=== PATIENT | female | born 1965 | race Caucasian/White ===

== ENCOUNTER 2016-08-10 16:03 | Emergency (ER) | payer SELFPAY ==
[2016-08-10 16:52] VITALS: BP 118/64
--- NOTE | 2016-08-10 16:57 | UC ---
Minor Trauma HPI - HPI Summary HPI Summary: Patient complaining of rib pain after falling off ladder and landing on L side. she states the pain wraps around to her back and is 10/10. Denies LOC or hitting her head. States she slipped an fell and did not pass out prior to falling. She is also complaining of knee pain. the pain is located in the back of the knee., she is able to move the knee with full ROM, she is c/o varicose vein which was smaller previous to the injury has now grown in size and is painful. - History of Current Complaint Chief Complaint: UCTrauma Stated Complaint: RIB PAIN Hx Obtained From: Patient Hx Last Menstrual Period: n/a ?: No Onset/Duration: Sudden Onset Onset Of Pain: Post Accident Severity Initially: Moderate Severity Currently: Moderate Pain Intensity: 5 Pain Scale Used: 0-10 Numeric Mechanism Of Injury: Blunt Trauma, Fall From Height Of: - 4 feet Aggravating Factor(s): Ambulation, Movement, Weight Bearing Alleviating Factor(s): Nothing Associated Signs And Symptoms: Positive: Swelling - varicose vein swelling - Risk Factors Penetrating Injury Risk Factors: Negative Compartment Syndrome Risk Factors: Pain - Allergies/Home Medications Allergies/Adverse Reactions: Allergies Allergy/AdvReac Type Severity Reaction Status Date / Time Codeine Allergy Hives Verified 04/06/16 11:21 Penicillins Allergy Difficulty Verified 04/06/16 11:21 Breathing Propoxyphene [From Darvon] Allergy Anaphylatic Verified 04/06/16 11:21 Shock aspirin Allergy Difficulty Uncoded 04/06/16 11:21 Breathing Home Medications: Home Medications Ascorbic Acid [Vitamin C] 1,000 mg PO DAILY 08/10/16 [History Confirmed 08/10/16 ] Docusate Sodium [Stool Softener] 200 mg PO BID 08/10/16 [History Confirmed 08/10] Omeprazole 20 mg PO DAILY 08/10/16 [History Confirmed 08/10/16] Venlafaxine ER (NF) [Effexor ER (NF)] 150 mg PO DAILY 08/10/16 [History Confirmed 08/10/16] PMH/Surg Hx/FS Hx/Imm Hx Previously Healthy: Yes Endocrine History Of: Reports: Thyroid Disease - hypo Denies: Diabetes Cardiovascular History Of: 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 Denies: Hypertension, Pacemaker/ICD GI/ History Of: Denies: Renal Disease - Surgical History Surgical History: Yes Surgery Procedure, Year, and Place: cholecystectomy; b/L knee repairs, cardiac ablation - Family History Known Family History: Positive: Cardiac Disease - Social History Occupation: Unemployed Lives: With Family Alcohol Use: None Substance Use Type: None Smoking Status (MU): Heavy Every Day Tobacco Smoker Amount Used/How Often: 1/2ppd Length of Time of Smoking/Using Tobacco: age 38 Have You Smoked in the Last Year: No Household Exposure Type: Cigarettes - Immunization History Most Recent Tetanus Shot: less than 10 yrs ago Review of Systems Constitutional: Negative Skin: Negative Eyes: Negative Respiratory: Negative Cardiovascular: Negative Genitourinary: Negative Motor: Negative Neurovascular: Negative Musculoskeletal: Other: - rib pain on L side Neurological: Negative All Other Systems Reviewed And Are Negative: Yes Physical Exam Triage Information Reviewed: Yes Appearance: Well-Appearing, Well-Nourished, Pain Distress Vital Signs: Initial Vital Signs Temp 97.6 F 08/10/16 16:43 Pulse 68 08/10/16 16:43 Resp 18 08/10/16 16:43 BP 118/64 08/10/16 16:43 Pulse Ox 100 08/10/16 16:43 Vital Signs Reviewed: Yes Eye Exam: Normal Eyes: Positive: Conjunctiva Clear ENT Exam: Normal ENT: Positive: Hearing grossly normal Neck exam: Normal Neck: Positive: Supple, Nontender Respiratory Exam: Normal Respiratory: Positive: Chest non-tender, Lungs clear Cardiovascular Exam: Normal Musculoskeletal Exam: Normal Musculoskeletal: Positive: Strength Intact, ROM Limited @ - twisting movement Neurological Exam: Normal Neurological: Positive: Alert Psychological Exam: Normal Psychological: Positive: Normal Response To Family, Age Appropriate Behavior Skin Exam: Normal Minor Trauma Course/Dx - Course Course Of Treatment: Patient sent to Xray. Tramadol given (allergy to codeine and cross reactivity with other pain meds) - Differential Dx/Diagnosis Differential Diagnosis/HQI/PQRI: Contusion(s), Hematoma(s), Sprain Provider Diagnoses: rib contusion Discharge - Discharge Plan Condition: Stable Disposition: HOME Prescriptions: traMADol TAB* [Ultram*] 50 mg PO Q6HR #12 tab MDD 4 Patient Education Materials: Rib Contusion (ED) Forms: *Work Release Referrals: Piero Licona PA [Primary Care Provider] - Additional Instructions: Rest for a few days. wear bear wrap on knee for 3-5 days for swelling.
[2016-08-10] MEDS ORDERED: traMADol TAB* 50 MG PO ONE (17:22)
--- NOTE | 2016-08-10 17:56 | RAD ---
Indication: LEFT thoracic cage pain post fall from ladder. Comparison: None. Technique: 4 view LEFT rib series obtained. Report: Inferolateral skin marker noted indicating the site of clinical concern. No LEFT rib fracture, pulmonary contusion, pleural effusion, pneumothorax. The heart, pulmonary vasculature, and mediastinal contours are unremarkable. Unremarkable soft tissue contours. IMPRESSION: Negative for LEFT rib fracture.
[2016-08-10] MEDS ORDERED: traMADol TAB* 50 MG ONE (21:49)
== END 2016-08-10 18:31 | disposition home or self-care (01) ==
LOC: UCCORT 16:03
DX: S20.212A Contusion of left front wall of thorax, initial encounter (principal); W11.XXXA Fall on and from ladder, initial encounter; Y92.9 Unspecified place or not applicable; Z88.6 Allergy status to analgesic agent; Z88.5 Allergy status to narcotic agent; Z88.0 Allergy status to penicillin; I45.6 Pre-excitation syndrome; F17.210 Nicotine dependence, cigarettes, uncomplicated
CPT/HCPCS: 99212; A9270-GY; G0463

== ENCOUNTER 2018-12-25 09:19 | Emergency (ER) | payer SELFPAY ==
[2018-12-25 10:03] VITALS: BP 115/56
[2018-12-25] MEDS ORDERED: Ibuprofen TAB* 600 MG PO ONE (10:42)
--- NOTE | 2018-12-25 10:49 | UC ---
UC General HPI - HPI Summary HPI Summary: 53-year-old woman comes in with a chief complaint of left hand wrist and knee pain after a fall. Patient was at work this morning she tripped and fell and landed on her left hand and left knee primarily. She has pain in both these areas. The wrist and hand pain or worse with palpation and range of motion as is the left knee. No weakness or numbness. There is bruising and swelling anterior left knee. Pain with any attempted ambulation. Has not had any pain medicines. - History of Current Complaint Chief Complaint: UCTrauma Stated Complaint: SP FALL-LT KNEE INJURY/HAND INJURY Time Seen by Provider: 12/25/18 10:39 Hx Last Menstrual Period: n/a Pain Intensity: 10 - Allergy/Home Medications Allergies/Adverse Reactions: Allergies Allergy/AdvReac Type Severity Reaction Status Date / Time codeine Allergy Hives Verified 12/25/18 10:15 Penicillins Allergy Difficulty Verified 12/25/18 10:15 Breathing propoxyphene Allergy Anaphylatic Verified 12/25/18 10:15 Shock aspirin Allergy Difficulty Uncoded 12/25/18 10:15 Breathing Home Medications: Home Medications Ibuprofen 800 mg PO Q8HR PRN 12/25/18 [History Confirmed 12/25/18] QUEtiapine TAB* [Seroquel 100 MG *] 100 mg PO BEDTIME 12/25/18 [History Confirmed 12/25/18] Venlafaxine HCl 225 mg PO DAILY 12/25/18 [History Confirmed 12/25/18] PMH/Surg Hx/FS Hx/Imm Hx Previously Healthy: Yes Endocrine History: Hypothyroidism GI/ History: Gastroesophageal Reflux - Surgical History Surgical History: Yes Surgery Procedure, Year, and Place: cholecystectomy; b/L knee repairs, cardiac ablation - Family History Known Family History: Positive: Cardiac Disease - Social History Alcohol Use: None Substance Use Type: None Smoking Status (MU): Heavy Every Day Tobacco Smoker Amount Used/How Often: 1/2ppd Length of Time of Smoking/Using Tobacco: age 38 Have You Smoked in the Last Year: No Household Exposure Type: Cigarettes - Immunization History Most Recent Tetanus Shot: less than 10 yrs ago Review of Systems All Other Systems Reviewed And Are Negative: Yes Constitutional: Positive: Negative Skin: Positive: Bruising Eyes: Positive: Negative ENT: Positive: Negative Respiratory: Positive: Negative Cardiovascular: Positive: Negative Gastrointestinal: Positive: Negative Motor: Positive: Other - SEE HPI Neurovascular: Positive: Negative Musculoskeletal: Positive: Other: - SEE HPI Neurological: Positive: Negative Psychological: Positive: Negative Is Patient Immunocompromised?: No Physical Exam Triage Information Reviewed: Yes Appearance: Well-Appearing, Well-Nourished, Pain Distress - MILD WITH ROM Vital Signs: Initial Vital Signs Temp 97.9 F 12/25/18 09:56 Pulse 78 12/25/18 09:56 Resp 16 12/25/18 09:56 BP 115/56 12/25/18 09:56 Pulse Ox 97 12/25/18 09:56 Vital Signs Reviewed: Yes Eye Exam: Normal Eyes: Positive: Conjunctiva Clear Neck: Positive: Supple Respiratory: Positive: No respiratory distress Musculoskeletal: Positive: Other: - The left hand is tender to palpation the left hand and wrist are tender to palpation on the dorsal aspect. On the hand the discomfort is in the proximal region closer to the wrist. There is full range of motion fingers have full range of motion full-strength no sensation deficit normal capillary refill. Left knee has anterior swelling and ecchymosis. It is diffusely tender to palpation. Normal capillary refill distally no sensation deficit. Neurological: Positive: Alert, Muscle Tone Normal Psychological Exam: Normal Psychological: Positive: Age Appropriate Behavior Skin: Positive: Other - LEFT ANTERIOR KNEE ECCYMOSIS Course/Dx - Course Course Of Treatment: Patient Name: JAY MOSES Medical Record#: [id number] Ordering Physician: Oz Eagle MD Acct.#: [id number] : 1965 Age: 53 Sex: F Location: [facility] Exam Date: 12/25/18 1043 ADM Status: REG ER Order Information: WRIST LEFT 3+ VWS Accession Number: [id number] CPT: 45685 INDICATION: LEFT hand metacarpal region pain extending into the wrist post fall. COMPARISON: No relevant prior exams available on the [facility] PACS for comparison. TECHNIQUE: AP, lateral, and oblique views LEFT hand. AP, lateral, and oblique views LEFT wrist REPORT AND IMPRESSION: #. Negative for fracture or malalignment at the wrist or hand. 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 Mild soft tissue swelling over the dorsum of the wrist and hand. <Electronically signed by Kapil Crain MD in OV> 12/25/18 1118 Patient Name: JAY MOSES Medical Record#: [id number] Ordering Physician: Oz Eagle MD Acct.#: [id number] : 1965 Age: 53 Sex: F Location: [facility] Exam Date: 12/25/18 1043 ADM Status: REG ER Order Information: KNEE LEFT 4+ VWS Accession Number: [id number] CPT: 41785 INDICATION: Left knee injury. TECHNIQUE: 4 views of the left knee were obtained. FINDINGS: The bones are in normal alignment. No joint effusion or fracture is seen. Joint spaces appear maintained. IMPRESSION: NO EVIDENCE FOR FRACTURE. <Electronically signed by Varinder Mark MD in OV> 12/25/18 1116 Patient Name: JAY MOSES Medical Record#: [id number] Ordering Physician: Oz Eagle MD Acct.#: [id number] : 1965 Age: 53 Sex: F Location: [facility] Exam Date: 12/25/18 1043 ADM Status: REG ER Order Information: HAND - LEFT MINIMUM 3 VIEWS Accession Number: [id number] CPT: 23357 INDICATION: LEFT hand metacarpal region pain extending into the wrist post fall. COMPARISON: No relevant prior exams available on the [facility] PACS for comparison. TECHNIQUE: AP, lateral, and oblique views LEFT hand. AP, lateral, and oblique views LEFT wrist REPORT AND IMPRESSION: #. Negative for fracture or malalignment at the wrist or hand. 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 Mild soft tissue swelling over the dorsum of the wrist and hand. <Electronically signed by Kapil Crain MD in OV> 12/25/18 1118 I discussed the x-rays with the patient. No fracture seen. Patient's left wrist was placed in a cock up splint left knee an Ruy wrap was applied both by nursing patient was neurovascularly intact after placement of the left wrist cock-up splint and the left knee Ruy wrap. Also patient's at home with a cane. Patient's had some orthopedic issues of the right hand is to see orthopedics tomorrow patient is to follow-up with orthopedics for these injuries also. I'm writing a note to have the patient out of work until cleared by medical provider. - Diagnoses Provider Diagnosis: Sprain of left wrist, Sprain of left hand, Left knee pain, Contusion Discharge - Sign-Out/Discharge Documenting (check all that apply): Patient Departure All imaging exams completed and their final reports reviewed: Yes - Discharge Plan Condition: Stable Disposition: HOME Patient Education Materials: Contusion in Adults (ED), Hand Sprain (ED), Knee Pain (ED), Wrist Sprain (ED) Forms: *Work Release Referrals: Piero Licona PA [Primary Care Provider] - Kenton Ocasio MD [Medical Doctor] - Additional Instructions: FOLLOW UP WITH ORTHOPEDICS TOMORROW SCHEDULED. GET RECHECKED SOONER IF YOUR CONDITION WORSENS OR ANY QUESTIONS OR CONCERNS. - Billing Disposition and Condition Condition: STABLE Disposition: Home
== END 2018-12-25 12:01 | disposition home or self-care (01) ==
LOC: UCCORT 09:19
DX: S63.92XA Sprain of unspecified part of left wrist and hand, initial encounter (principal); S80.02XA Contusion of left knee, initial encounter; F17.210 Nicotine dependence, cigarettes, uncomplicated; Z88.5 Allergy status to narcotic agent; Z88.0 Allergy status to penicillin; Z88.8 Allergy status to other drugs, medicaments and biological substances; W01.0XXA Fall on same level from slipping, tripping and stumbling without subsequent striking against object, initial encounter; Y92.9 Unspecified place or not applicable; Y99.0 Civilian activity done for income or pay
CPT/HCPCS: 99213; A9270-GY; G0463

== ENCOUNTER 2019-02-27 14:07 | Emergency (ER) | payer BC, OTHER ==
--- OUTSIDE RECORDS SUMMARY | 2019-02-27 14:17 | XMS REPORT | Continuity of Care Document ---
:1965 External Reference #:[id number] Author Name Marcie Alvarado, [facility] Address [address] [place] [address] Care Team Providers Name Role Phone Rashmi Licona PA Care Team Information Research Recruiter Unavailable Rashmi Licona PA Primary Care Physician Unavailable Payers Date Identification Numbers Payment Provider Subscriber Effective: 2019 Policy Number: [id number] [employer] Joey Ragland Toussaint PayID: [id number] [address] [address] [place] [address] Onset: 2018 Policy Number: [id number] [facility] Insurance Fund Joey Toussaint Group Name: [address] [address] PayID: [id number] [place] [address] Expires: 2019 Policy Number: [id number] Self-Pay Joey Toussaint PayID: [id number] Problems Active Problems Provider Date Mallet finger Carlene Shannon PA Onset: 04/25/2018 Fracture distal phalanx of thumb Carlene Shannon PA Onset: 04/25/2018 Family History Date Family Member(s) Observation Comments Father 80 Mother 72 Social History Type Date Description Comments Sex Unknown Marital Status Single Lives With Alone Diet Patient follows no dietary restrictions 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 [employer] Hand Dominance Right-handed Abuse No history of abuse Tobacco Use Start: Unknown Patient is a current cigarette 20 YEARS smoker, smokes every day Tobacco Use Start: Unknown Current Cigarette Smoker 5-10 Cigarettes Daily Smoking Status Reviewed: 01/29/19 Current Cigarette Smoker 5-10 Cigarettes Daily ETOH Use Rarely consumes alcohol Recreational Drug Use Denies Drug Use Tobacco Use Start: Unknown Patient is a current smoker, smokes every day Enjoy Exercising Does not enjoy exercising Tattoo/Piercing Tattoo Tattoo/Piercing Pierced ears Tattoo/Piercing Pierced Tongue Smoke Alarms Yes Currently Active Patient is currently sexually active Contraceptive Methods None Age 1st [place] 13 Years Old # Partners in a Lifetime 3 # Partners in a Lifetime Has been with current partner for 1 year STD's No STD History Allergies, Adverse Reactions, Alerts Active Allergies Reaction Severity Comments Date Latex 04/25/2018 Penicillin 04/25/2018 Aspirin 04/25/2018 Medications Active Medications SIG Qnty Indications Ordering Provider Date Diclofenac Sodium 1 tab twice a day 60tabs Flower Chandra, 11/29/2018 with food 50mg Tablets Albuterol Inhaler 2 puffs prn 1units Unknown 90mcg/Act Aerosol Synthroid 1 po qd Unknown 75mcg Tablets Quetiapine Fumarate 1 by mouth every [place], day MD Jeancarlos 50mg Tablets Proair HFA take 2 puffs every 17gm Unknown 6 hours as needed 108(90Base) mcg/Act for shortness of Aerosol breath. Omeprazole 1 by mouth every Unknown 20mg day Capsules DR Nicky Cheatham inhale 1 dose by Unknown mouth once daily 100-25mcg/Inh Aerosol Venlafaxine HCL 1 by mouth every Unknown 75mg day Tablets History Medications Tylophen 500mg Capsules prn Unknown - Medications Administered in Office Medication SIG Qnty Indications Ordering Provider Date Betamethasone Acetate & Marcie Alvarado, [facility] 02/10/2019 Sodium Phosphate 3 MG Of Each Injection Betamethasone Acetate & Marcie Alvarado, [facility] 02/10/2019 Sodium Phosphate 3 MG Of Each Injection Depomedrol 40mg/1cc Flower Chandra MD 01/15/2019 (methylprednisolone acetate) Injection Betamethasone Acetate & Marcie Alvarado, [facility] 12/26/2018 Sodium Phosphate 3 MG Of Each Injection Vital Signs Date Vital Result Comment 02/10/2019 3:01pm BP Systolic 134 mmHg BP Diastolic 59 mmHg Body Temperature 98.0 F Heart Rate 88 /min Height 67 inches 5'7" Weight 227.00 lb BMI (Body Mass Index) 35.5 kg/m2 BSA (Body Surface Area) 2.13 m2 [place] body weight in kilograms 61 kg O2 % BldC Oximetry 94 % 01/29/2019 9:51am BP Systolic Sitting Right Arm 114 mmHg BP Diastolic Sitting Right Arm 73 mmHg Body Temperature 98.8 F Heart Rate 93 /min [place] body weight in kilograms 66 kg O2 % BldC Oximetry 94 % 01/15/2019 2:34pm BP Systolic 132 mmHg BP Diastolic 78 mmHg Body Temperature 98.7 F Heart Rate 84 /min Height 69 inches 5'9" [place] body weight in kilograms 66 kg O2 % BldC Oximetry 93 % 12/31/2018 2:11pm BP Systolic Sitting Left Arm 120 mmHg Body Temperature 98.5 F Heart Rate 88 /min Height 69 inches 5'9" Weight 200.00 lb BMI (Body Mass Index) 29.5 kg/m2 BSA (Body Surface Area) 2.07 m2 [place] body weight in kilograms 66 kg O2 % BldC Oximetry 96 % 12/26/2018 10:32am BP Systolic Sitting Left Arm 112 mmHg BP Diastolic Sitting Left Arm 74 mmHg Body Temperature 99.4 F Heart Rate 106 /min Height 69 inches 5'9" [place] body weight in kilograms 66 kg O2 % BldC Oximetry 94 % 11/29/2018 10:32am BP Systolic 115 mmHg BP Diastolic 75 mmHg Body Temperature 99.3 F Heart Rate 91 /min Height 68 inches 5'8" Weight 223.00 lb BMI (Body Mass Index) 33.9 kg/m2 BSA (Body Surface Area) 2.14 m2 [place] body weight in kilograms 63 kg O2 % BldC Oximetry 97 % 07/04/2018 10:59am BP Systolic Sitting Right Arm 126 mmHg BP Diastolic Sitting Right Arm 80 mmHg Body Temperature 98.5 F Heart Rate 91 /min Height 69 inches 5'9" Weight 225.25 lb BMI (Body Mass Index) 33.3 kg/m2 BSA (Body Surface Area) 2.17 m2 [place] body weight in kilograms 66 kg O2 % BldC Oximetry 98 % Pain Level 6 Rt Pinky 06/04/2018 3:13pm BP Systolic 127 mmHg BP Diastolic 81 mmHg Body Temperature 98.8 F Heart Rate 87 /min Respiratory Rate 16 /min Height 69 inches 5'9" Weight 225.12 lb BMI (Body Mass Index) 33.2 kg/m2 BSA (Body Surface Area) 2.17 m2 [place] body weight in kilograms 66 kg O2 % BldC Oximetry 96 % Ra Pain Level 0 05/21/2018 2:54pm BP Systolic Sitting Right Arm 104 mmHg BP Diastolic Sitting Right Arm 52 mmHg Heart Rate 96 /min Respiratory Rate 16 /min Height 69 inches 5'9" Weight 224.00 lb BMI (Body Mass Index) 33.1 kg/m2 BSA (Body Surface Area) 2.17 m2 [place] body weight in kilograms 66 kg O2 % BldC Oximetry 96 % 05/14/2018 2:49pm BP Systolic 110 mmHg BP Diastolic 70 mmHg Body Temperature 98.1 F Heart Rate 95 /min Height 69 inches 5'9" Weight 218.00 lb BMI (Body Mass Index) 32.2 kg/m2 BSA (Body Surface Area) 2.14 m2 [place] body weight in kilograms 66 kg O2 % BldC Oximetry 98 % Pain Level 8 04/25/2018 10:09am BP Systolic Sitting Right Arm 113 mmHg BP Diastolic Sitting Right Arm 72 mmHg Body Temperature 98.4 F Heart Rate 85 /min Respiratory Rate 18 /min Weight 217.12 lb O2 % BldC Oximetry 96 % 11/28/2010 1:16pm Heart Rate 74 /min Results Test Date Facility Test Result H/L Range Note Laboratory test 11/29/2018 [facility] Sedimentation Rate 29 mm/hr Normal 2-45 1 finding [address] [place] [address] [phone] Uric Acid 3.5 mg/dL Normal 2.6-6.0 Calcium 8.3 mg/dL Low 8.5-10.1 Total Protein 7.4 g/dL Normal 6.4-8.2 Albumin 3.6 g/dL Normal 3.4-5.0 Alb/Glob 0.9 ratio Alkaline Phosphatase 84 U/L Normal 45-117 Rheumatoid Factor Screen < 10.0 IU/mL Normal 0.0-15.0 Globulin 3.8 g/dL Normal 1.9-4.3 Antinuclear Antibodies, Ifa Negative . 2 Laboratory test finding 12/05/2010 [facility] HCG, Quant 3.0 mIU/mL 3 [address] [place] [address] [phone] Laboratory test finding 11/28/2010 [facility] HCG, Quant 3.0 mIU/mL 4 [address] [place] [address] [phone] FSH 85.9 mIU/mL 5 Luteinizing Hormone 69.0 mIU/mL 6 Prolactin 15.3 ng/mL 3.24-29.12 7 Thyroid Stim Hormone 3.50 uIU/mL 0.49-4.67 8 Free T4 1.01 ng/dL 0.71-1.85 9 1 This result was obtained with an ESR method that is not based on the standard Westergren Method. When comparing results obtained from the traditional Westergren ESR and this method it is important to refer to the reference range for each method. Method: Capillary Photometry 2 Negative <1:80 Borderline 1:80 Positive >1:80 Performed at: - [facility] [id number] Case Reviewer: Nini Lord MD, Phone: [phone] APPROXIMATE GESTATIONAL AGE AND BHCG RANGE 0-1 WEEK.......................1-50 mIU/mL 1-2 WEEKS....................40-300 mIU/mL 2-3 WEEKS.................100-1,000 mIU/mL 3-4 WEEKS.................500-6,000 mIU/mL 1-2 MONTHS............5,000-200,000 mIU/mL 2-3 MONTHS...........10,000-100,000 mIU/mL 2nd TRIMESTER..........3,000-50,000 mIU/mL 3rd TRIMESTER..........1,000-50,000 mIU/mL 4 APPROXIMATE GESTATIONAL AGE AND BHCG RANGE 0-1 WEEK.......................1-50 mIU/mL 1-2 WEEKS....................40-300 mIU/mL 2-3 WEEKS.................100-1,000 mIU/mL 3-4 WEEKS.................500-6,000 mIU/mL 1-2 MONTHS............5,000-200,000 mIU/mL 2-3 MONTHS...........10,000-100,000 mIU/mL 2nd TRIMESTER..........3,000-50,000 mIU/mL 3rd TRIMESTER..........1,000-50,000 mIU/mL 5 NORMALLY MENSTRUATING FEMALES: Follicular Phase:...............4-13 mIU/mL Mid-Cycle Peak:.................5-22 mIU/mL Luteal Phase:...................2-13 mIU/mL Postmenopausal Female:........20-138 mIU/mL 6 NORMALLY MENSTRUATING FEMALES: Follicular Phase.............1-18 mIU/mL Mid-Cycle Peak.............24-105 mIU/mL Luteal Phase...............0.4-20 mIU/mL Postmenopausal .............15-62 mIU/mL 7 TEST PERFORMED ON SUNDAY, SUNDAY, AND SUNDAY QUERY: @[facility] Pat ID: [id number] QUERY: @[facility] Req #: [id number] QUERY: @[facility] Pat ID: [id number] QUERY: @[facility] Req #: [id number] QUERY: @[facility] Pat ID: [id number] QUERY: @[facility] Req #: [id number] Procedures Date Code Description Status 02/10/2019 Asp/Injection small joint/bursa (ie-fingers,toes) Completed 02/10/2019 Asp/Injection small joint/bursa (ie-fingers,toes) Completed 01/29/2019 11794 Application of Cast short arm Completed 01/15/2019 87534 Radiology, Wrist Complete Completed 01/15/2019 10904 Asp./Injection major joint Completed 12/24/2018 09927 Nerve Conduction 7-8 Studies Completed 12/24/2018 69870 Needle Electromyography Complete, Five Or More Muscles Completed Studied 11/29/2018 29243 Radiology, Hand: Minimum Three Views Completed 07/04/2018 03602 Radiology, Finger(S), Two Views Completed 07/04/2018 11137 Apply Splint Finger Static Completed 06/04/2018 65772 Radiology, Finger(S), Two Views Completed 06/04/2018 80830 Radiology, Finger(S), Two Views Completed 05/21/2018 17662 Apply Splint Finger Static Completed 05/14/2018 10069 Radiology, Finger(S), Two Views Completed 05/14/2018 29738 Apply Splint Finger Static Completed 04/25/2018 00445 Fracture-closed finger or thumb Completed 01/08/2017 66171 EKG Interpretation And Report Only Completed 08/02/2012 72436 Holter Monitor 24HR Inter/Report Completed 06/07/2012 85036 Echocardiogram Complete Completed 08/06/2008 86620315 Mammogram Completed 11/05/2007 64065 EKG Interpretation And Report Only Completed Encounters Type Date Location Provider Dx Diagnosis Office Visit 01/29/2019 Orthopaedic Office Flower Chandra, M24.232 Disorder of 10:15a ligament, left wrist M67.432 Ganglion, left wrist M65.4 Radial styloid tenosynovitis [de Quervain] 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, left wrist Office Visit 01/15/2019 Blake Chandra 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, left knee M17.12 Unilateral primary osteoarthritis, left knee M65.4 Radial styloid tenosynovitis [de Quervain] Office Visit 12/31/2018 Blake Chandra, S63.502D Unspecified 2:15p Office MD Flower sprain of left wrist, subsequent encounter S63.502D Unspecified sprain of left wrist, subsequent encounter S83.232D Complex tear of medial mensc, current injury, l knee, subs S83.232D Complex tear of medial mensc, current injury, l knee, subs W18.49xA Oth slipping, tripping and stumbling w/o falling, init W18.49xA Oth slipping, tripping and stumbling w/o falling, init Y99.0 Civilian activity done for income or pay Y99.0 Civilian activity done for income or pay Office Visit 11/29/2018 10:15a Orthopaedic Office Marcie Alvarado M79.641 Pain in S., [facility] right hand M25.531 Pain in right wrist M79.642 Pain in left hand R20.0 Anesthesia of skin Office Visit 04/25/2018 10:15a Orthopaedic Office Carlene Shannon, S62.636A Disp fx of PA distal phalanx of right little finger, init M20.011 Mallet finger of right finger(s) Office Visit 12/05/2010 10:00a survey researcher Office Shadi Soto, 626.0 Menstruation Absence M.D. Office Visit 11/28/2010 9:00a survey researcher Office Shadi Soto, 626.0 Menstruation Absence M.D. 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
--- OUTSIDE RECORDS SUMMARY | 2019-02-27 14:17 | XMS REPORT | Continuity of Care Document ---
:1965 External Reference #:[id number] Author Name Flower Chandar MD Address [address] [place] [address] Care Team Providers Name Role Phone Rashmi Licona PA Care Team Information Dynamometer Tester Unavailable Rashmi Licona PA Primary Care Physician Unavailable Payers Date Identification Numbers Payment Provider Subscriber Onset: 2018 Policy Number: [id number] [facility] Insurance Fund Joey Toussaint Group Name: [address] [address] PayID: [id number] [place] [address] Effective: 2019 Policy Number: [id number] [employer] Joey Toussaint PayID: [id number] [address] [address] [place] [address] Expires: 2019 Policy Number: [id number] Self-Pay Joey Toussaint PayID: [id number] Problems Active Problems Provider Date Mallet finger Carlene Shannon PA Onset: 04/25/2018 Fracture distal phalanx of thumb Carlene Shannon PA Onset: 04/25/2018 Family History Date Family Member(s) Observation Comments Father 80 Mother 72 Social History Type Date Description Comments Sex Unknown Marital Status Single Lives With Alone Diet Patient follows no dietary restrictions 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 Hand 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 Right-handed Abuse No history of abuse Tobacco Use Start: Unknown Patient is a current cigarette 20 YEARS smoker, smokes every day Tobacco Use Start: Unknown Current Cigarette Smoker 5-10 Cigarettes Daily Smoking Status Reviewed: 02/13/19 Current Cigarette Smoker 5-10 Cigarettes Daily ETOH Use Rarely consumes alcohol Recreational Drug Use Denies Drug Use Tobacco Use Start: Unknown Patient is a current smoker, smokes every day Enjoy Exercising Does not enjoy exercising Tattoo/Piercing Tattoo Tattoo/Piercing Pierced ears Tattoo/Piercing Pierced Tongue Smoke Alarms Yes Currently Active Patient is currently sexually active Contraceptive Methods None Age 1st [place] 13 Years Old # Partners in a [...] Tablets Quetiapine Fumarate 1 by mouth every [place], day MD Jeancarlos 50mg Tablets Proair HFA [...] Ordering Provider Date Betamethasone Acetate & Marcie Alvarado [facility] 02/10/2019 Sodium Phosphate 3 MG Of Each Injection Depomedrol 40mg/1cc Flower Chandra MD 01/15/2019 (methylprednisolone acetate) [facility] 12/26[facility]2018 Sodium Phosphate 3 MG Of Each Injection Vital Signs Date Vital Result Comment 02/25/2019 3:35pm BP Systolic 121 mmHg BP Diastolic 74 mmHg Body Temperature 97.8 F Heart Rate 86 /min Height 67.5 inches 5'7.50" Weight 220.00 lb BMI (Body Mass Index) 33.9 kg/m2 BSA (Body Surface Area) 2.12 m2 [place] body weight in kilograms 62 kg O2 % BldC Oximetry 93 % 02/10/2019 3:01pm BP Systolic 134 mmHg BP Diastolic 59 mmHg Body Temperature 98.0 F Heart Rate 88 /min Height 67 inches 5'7" Weight 227.00 lb BMI (Body Mass Index) 35.5 kg/m2 BSA (Body Surface Area) 2.13 m2 [place] body weight in kilograms 61 kg O2 % BldC Oximetry 94 % 01/29/2019 9:51am BP Systolic Sitting Right Arm 114 mmHg BP Diastolic Sitting Right Arm 73 mmHg Body Temperature 98.8 F Heart Rate 93 /min [place] body weight in kilograms 66 kg O2 % BldC Oximetry 94 % 01/15/2019 2:34pm BP Systolic 132 mmHg BP Diastolic 78 mmHg Body Temperature 98.7 F Heart Rate 84 /min Height 69 inches 5'9" [place] body weight in kilograms 66 kg O2 % BldC Oximetry 93 % 12/31/2018 2:11pm BP Systolic Sitting Left Arm 120 mmHg Body Temperature 98.5 F Heart Rate 88 /min Height 69 inches 5'9" Weight 200.00 lb BMI (Body Mass Index) 29.5 kg/m2 BSA (Body Surface Area) 2.07 m2 [place] body weight in kilograms 66 kg O2 % BldC Oximetry 96 % 12/26/2018 10:32am BP Systolic Sitting Left Arm 112 mmHg BP Diastolic Sitting Left Arm 74 mmHg Body Temperature 99.4 F Heart Rate 106 /min Height 69 inches 5'9" [place] body weight in kilograms 66 kg O2 % BldC Oximetry 94 % 11/29/2018 10:32am BP Systolic 115 mmHg BP Diastolic 75 mmHg Body Temperature 99.3 F Heart Rate 91 /min Height 68 inches 5'8" Weight 223.00 lb BMI (Body Mass Index) 33.9 kg/m2 BSA (Body Surface Area) 2.14 m2 [place] body weight in kilograms 63 kg O2 % BldC Oximetry 97 % 07/04/2018 10:59am BP Systolic Sitting Right Arm 126 mmHg BP Diastolic Sitting Right Arm 80 mmHg Body Temperature 98.5 F Heart Rate 91 /min Height 69 inches 5'9" Weight 225.25 lb BMI (Body Mass Index) 33.3 kg/m2 BSA (Body Surface Area) 2.17 m2 [place] body weight in kilograms 66 kg O2 % BldC Oximetry 98 % Pain Level 6 Rt Pinky 06/04/2018 3:13pm BP Systolic 127 mmHg BP Diastolic 81 mmHg Body Temperature 98.8 F Heart Rate 87 /min Respiratory Rate 16 /min Height 69 inches 5'9" Weight 225.12 lb BMI (Body Mass Index) 33.2 kg/m2 BSA (Body Surface Area) 2.17 m2 [place] body weight in kilograms 66 kg O2 % BldC Oximetry 96 % Ra Pain Level 0 05/21/2018 2:54pm BP Systolic Sitting Right Arm 104 mmHg BP Diastolic Sitting Right Arm 52 mmHg Heart Rate 96 /min Respiratory Rate 16 /min Height 69 inches 5'9" Weight 224.00 lb BMI (Body Mass Index) 33.1 kg/m2 BSA (Body Surface Area) 2.17 m2 [place] body weight in kilograms 66 kg O2 % BldC Oximetry 96 % 05/14/2018 2:49pm BP Systolic 110 mmHg BP Diastolic 70 mmHg Body Temperature 98.1 F Heart Rate 95 /min Height 69 inches 5'9" Weight 218.00 lb BMI (Body Mass Index) 32.2 kg/m2 BSA (Body Surface Area) 2.14 m2 [place] body weight in kilograms 66 kg O2 [...] Result H/L Range Note Laboratory test 11/29/2018 [facility] Sedimentation Rate 29 mm/hr Normal 2-45 1 finding [address] [place] [address] [phone] Uric Acid 3.5 mg/dL Normal 2.6-6.0 Calcium 8.3 mg/dL Low 8.5-10.1 Total Protein 7.4 g/dL Normal 6.4-8.2 Albumin 3.6 g/dL Normal 3.4-5.0 Alb/Glob 0.9 ratio Alkaline Phosphatase 84 U/L Normal 45-117 Rheumatoid Factor Screen < 10.0 IU/mL Normal 0.0-15.0 Globulin 3.8 g/dL Normal 1.9-4.3 Antinuclear Antibodies, Ifa Negative . 2 Laboratory test finding 12/05/2010 [facility] HCG, Quant 3.0 mIU/mL 3 [address] [place] [address] [phone] Laboratory test finding 11/28/2010 [facility] HCG, Quant 3.0 mIU/mL 4 [address] [place] [address] [phone] FSH 85.9 mIU/mL 5 Luteinizing Hormone 69.0 [...] Borderline 1:80 Positive >1:80 Performed at: - [facility] [id number] Supervisor Carbon Electrodes: Nini Lord MD, Phone: [phone] APPROXIMATE GESTATIONAL AGE AND BHCG RANGE [...] PERFORMED ON SUNDAY, SUNDAY, AND SUNDAY QUERY: @[facility] Pat ID: [id number] QUERY: @[facility] Req #: [id number] [phone] QUERY: @[facility] Pat ID: [id number] QUERY: @[facility] Req #: [id number] QUERY: @[facility] Pat ID: [id number] QUERY: @[facility] Req #: [id number] Procedures Date Code Description Status 02/10/2019 Injection:Tendon Sheath,Lig. Cyst Completed 02/10/2019 Injection:Tendon Sheath,Lig. Cyst Completed 01/29/2019 28564 Application of Cast short arm Completed 01/15/2019 29785 Radiology, Wrist Complete Completed 01/15/2019 65768 Asp./Injection major joint Completed 12/24/2018 52715 Nerve Conduction 7-8 Studies Completed 12/24/2018 12739 Needle Electromyography Complete, Five Or More Muscles Completed Studied 11/29/2018 76012 Radiology, Hand: Minimum Three Views Completed 07/04/2018 98503 Radiology, Finger(S), Two Views Completed 07/04/2018 21384 Apply Splint Finger Static Completed 06/04/2018 97693 Radiology, Finger(S), Two Views Completed 06/04/2018 79001 Radiology, Finger(S), Two Views Completed 05/21/2018 81718 Apply Splint Finger Static Completed 05/14/2018 39283 Radiology, Finger(S), Two Views Completed 05/14/2018 29129 Apply Splint Finger Static Completed 04/25/2018 43458 Fracture-closed finger or thumb Completed 01/08/2017 21953 EKG Interpretation And Report Only Completed 08/02/2012 52389 Holter Monitor 24HR Inter/Report Completed 06/07/2012 53478 Echocardiogram Complete Completed 08/06/2008 [id number] Mammogram Completed 11/05/2007 17492 EKG Interpretation And Report Only Completed Encounters [...] Office Marcie Alvarado M79.641 Pain in S., [facility] right hand M25.531 Pain in right wrist M79.642 Pain in left hand R20.0 Anesthesia of skin Office Visit 04/25/2018 10:15a Orthopaedic Office Carlene Shannon, S62.636A Disp fx of PA distal phalanx of right little finger, init M20.011 Mallet finger of right finger(s) Office Visit 12/05/2010 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 Office Visit 11/28/2010 9:00a assault amphibious vehicle officer Office Shadi Soto, 626.0 Menstruation Absence M.D. Plan of Treatment Future Appointment(s):05/28/2019 3:15 pm - Flower Chandra MD at Orthopaedic Qdfmgf3804/03/2019 1:00 pm - Jessica Villela MD at Physical Medicine & Infectious Gelluvq4902/25/2019 - Flower Chandra, MDM17.12 Unilateral primary osteoarthritis, left knee
--- OUTSIDE RECORDS SUMMARY | 2019-02-27 14:17 | XMS REPORT | Continuity of Care Document ---
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 Rashmi Licona PA Primary Care Physician Unavailable Payers Date Identification Numbers Payment Provider Subscriber Onset: 2018 Policy Number: [id number] [facility] Insurance Fund Joey Singleton Group Name: [address] [address] PayID: [id number] [place] [address] Policy Number: [id number] Self-Pay Joey Singleton PayID: [id number] Problems Active Problems Provider Date Mallet finger Carlene Shannon PA Onset: 04/25/2018 Fracture distal phalanx of thumb Carlene Shannon PA Onset: 04/25/2018 Family History Date Family Member(s) Observation Comments Father 80 Mother 72 Social History Type Date Description Comments Sex Unknown Marital Status Single Lives With Alone Diet Patient follows no dietary restrictions Occupation [employer] 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 Hand Dominance Right-handed Abuse No history of [...] sexually active Contraceptive Methods None Age [employer] 13 Years Old # Partners in a [...] Tablets Quetiapine Fumarate 1 by mouth every [place], day MD Jeancarlos 50mg Tablets Proair HFA [...] Medication SIG Qnty Indications Ordering Provider Date Depomedrol 40mg/1cc Flower Chandra MD 01/15/2019 (methylprednisolone acetate) Injection Betamethasone Acetate & Marcie Alvarado, [facility] 12/26/2018 Sodium Phosphate 3 MG Of Each Injection Vital Signs Date Vital Result Comment 01/29/2019 9:51am BP Systolic Sitting Right Arm 114 mmHg BP Diastolic Sitting Right Arm 73 mmHg Body Temperature 98.8 F Heart Rate 93 /min [place] body weight in kilograms 66 kg O2 % BldC Oximetry 94 % 01/15/2019 2:34pm BP Systolic 132 mmHg BP Diastolic 78 mmHg Body Temperature 98.7 F Heart Rate 84 /min Height 69 inches 5'9" [place] body weight in kilograms 66 kg O2 % BldC Oximetry 93 % 12/31/2018 2:11pm BP Systolic Sitting Left Arm 120 mmHg Body Temperature 98.5 F Heart Rate 88 /min Height 69 inches 5'9" Weight 200.00 lb BMI (Body Mass Index) 29.5 kg/m2 BSA (Body Surface Area) 2.07 m2 [place] body weight in kilograms 66 kg O2 % BldC Oximetry 96 % 12/26/2018 10:32am BP Systolic Sitting Left Arm 112 mmHg BP Diastolic Sitting Left Arm 74 mmHg Body Temperature 99.4 F Heart Rate 106 /min Height 69 inches 5'9" [place] body weight in kilograms 66 kg O2 % BldC Oximetry 94 % 11/29/2018 10:32am BP Systolic 115 mmHg BP Diastolic 75 mmHg Body Temperature 99.3 F Heart Rate 91 /min Height 68 inches 5'8" Weight 223.00 lb BMI (Body Mass Index) 33.9 kg/m2 BSA (Body Surface Area) 2.14 m2 [place] body weight in kilograms 63 kg O2 % BldC Oximetry 97 % 07/04/2018 10:59am BP Systolic Sitting Right Arm 126 mmHg BP Diastolic Sitting Right Arm 80 mmHg Body Temperature 98.5 F Heart Rate 91 /min Height 69 inches 5'9" Weight 225.25 lb BMI (Body Mass Index) 33.3 kg/m2 BSA (Body Surface Area) 2.17 m2 [place] body weight in kilograms 66 kg O2 % BldC Oximetry 98 % Pain Level 6 Rt Pinky 06/04/2018 3:13pm BP Systolic 127 mmHg BP Diastolic 81 mmHg Body Temperature 98.8 F Heart Rate 87 /min Respiratory Rate 16 /min Height 69 inches 5'9" Weight 225.12 lb BMI (Body Mass Index) 33.2 kg/m2 BSA (Body Surface Area) 2.17 m2 [place] body weight in kilograms 66 kg O2 % BldC Oximetry 96 % Ra Pain Level 0 05/21/2018 2:54pm BP Systolic Sitting Right Arm 104 mmHg BP Diastolic Sitting Right Arm 52 mmHg Heart Rate 96 /min Respiratory Rate 16 /min Height 69 inches 5'9" Weight 224.00 lb BMI (Body Mass Index) 33.1 kg/m2 BSA (Body Surface Area) 2.17 m2 [place] body weight in kilograms 66 kg O2 % BldC Oximetry 96 % 05/14/2018 2:49pm BP Systolic 110 mmHg BP Diastolic 70 mmHg Body Temperature 98.1 F Heart Rate 95 /min Height 69 inches 5'9" Weight 218.00 lb BMI (Body Mass Index) 32.2 kg/m2 BSA (Body Surface Area) 2.14 m2 [place] body weight in kilograms 66 kg O2 [...] Result H/L Range Note Laboratory test 11/29/2018 [facility] Sedimentation Rate 29 mm/hr N 2-45 1 finding [address] [place] [address] [phone] Uric Acid 3.5 mg/dL N 2.6-6.0 Calcium 8.3 mg/dL Low 8.5-10.1 Total Protein 7.4 g/dL N 6.4-8.2 Albumin 3.6 g/dL N 3.4-5.0 Alb/Glob 0.9 ratio Alkaline Phosphatase 84 U/L N 45-117 Rheumatoid Factor Screen < 10.0 IU/mL N 0.0-15.0 Globulin 3.8 g/dL N 1.9-4.3 Antinuclear Antibodies, Ifa Negative . 2 Laboratory test finding 12/05/2010 [facility] HCG, Quant 3.0 mIU/mL 3 [address] [place] [address] [phone] Laboratory test finding 11/28/2010 [facility] HCG, Quant 3.0 mIU/mL 4 [address] [place] [address] [phone] FSH 85.9 mIU/mL 5 Luteinizing Hormone 69.0 [...] <1:80 Borderline 1:80 Positive >1:80 Performed at: [facility] [id number] Electric Scoop Operator: Nini Lord MD, Phone: [phone] APPROXIMATE GESTATIONAL AGE AND BHCG RANGE [...] PERFORMED ON SUNDAY, SUNDAY, AND SUNDAY QUERY: @SNOBSWAP Pat ID: [id number] QUERY: @SNOBSWAP Req #: [id number] QUERY: @SNOBSWAP Pat ID: [id number] QUERY: @SNOBSWAP Req #: [id number] QUERY: @SNOBSWAP Pat ID: [id number] QUERY: @SNOBSWAP Req #: [id number] Procedures Date Code Description Status 01/15/2019 15007 Radiology, Wrist Complete Completed 01/15/2019 36133 Asp./Injection major joint Completed 12/24/2018 29880 Nerve Conduction 7-8 Studies Completed 12/24/2018 67307 Needle Electromyography Complete, Five Or More Muscles Completed Studied 11/29/2018 59406 Radiology, Hand: Minimum Three Views Completed 07/04/2018 19259 Radiology, Finger(S), Two Views Completed 07/04/2018 71836 Apply Splint Finger Static Completed 06/04/2018 29730 Radiology, Finger(S), Two Views Completed 06/04/2018 27254 Radiology, Finger(S), Two Views Completed 05/21/2018 72619 Apply Splint Finger Static Completed 05/14/2018 91560 Radiology, Finger(S), Two Views Completed 05/14/2018 98002 Apply Splint Finger Static Completed 04/25/2018 98312 Fracture-closed finger or thumb Completed 01/08/2017 00138 EKG Interpretation And Report Only Completed 08/02/2012 81203 Holter Monitor 24HR Inter/Report Completed 06/07/2012 54335 Echocardiogram Complete Completed 08/06/2008 11259297 Mammogram Completed 11/05/2007 48707 EKG Interpretation And Report Only Completed Encounters Type Date Location Provider Dx Diagnosis Office Visit 01/15/2019 Orthopaedic Office Flower Chandra, 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 Office Visit 11/28/2010 9:00a um rn Office Shadi Soto 626.0 Menstruation Absence M.D. Plan of Treatment Future Appointment(s):04/03/2019 1:00 pm - Jessica Villela MD at Physical Medicine [facility] Infectious Uxrnxnc6102/25/2019 3:30 pm - Flower Chandra MD at Orthopaedic Auvmkp6801/29/2019 [facility] MD, Surgery,OrthopedicCatorJessica MD, Physical Medicine/Rehab
[2019-02-27 14:23] VITALS: BP 123/66
--- NOTE | 2019-02-27 14:40 | UC ---
Asthma HPI - HPI Summary HPI Summary: History of COPD and asthma, with increase in cough and wheeze with increasing humidity. Feels unwell, some chills, chest feels tight. No recent allergy symptoms, no fever, sore throat or ear pain. Smokes 1/2 ppd and is not ready to stop. For the past month she has had vomiting at night following use of albuterol nebulizer, vomits food and phlegm. Longstanding history of reflux, no dypshagia. - History of Current Complaint Chief Complaint: UCRespiratory Stated Complaint: ASTHMA Time Seen by Provider: 02/27/19 14:33 Hx Obtained From: Patient Hx Last Menstrual Period: n/a Onset/Duration: Gradual Onset Timing: Intermittent Episode Lasting - hours Initial Severity: Moderate Current Severity: Moderate Pain Intensity: 5 Location/Character: Cough (Productive) Aggravating Factor(s): Weather Change Alleviating Factor(s): Inhalers/Nebulizers Associated Signs and Symptoms: Positive: Shortness of Breath - Risk Factors Status Asthmaticus Risk Factors: Smoking - Allergy/Home Medications Allergies/Adverse Reactions: Allergies Allergy/AdvReac Type Severity Reaction Status Date / Time codeine Allergy Hives Verified 02/27/19 14:23 latex Allergy Rash Verified 02/27/19 14:23 Penicillins Allergy Difficulty Verified 02/27/19 14:23 Breathing propoxyphene Allergy Anaphylatic Verified 02/27/19 14:23 Shock aspirin Allergy Difficulty Uncoded 02/27/19 14:23 Breathing Home Medications: Home Medications Albuterol/Ipratropium NEB.JUANY* [Duoneb (Albuterol 2.5 MG/Ipratropium 0.5 MG)] 1 inh INH Q6H 02/27/19 [History Confirmed 02/27/19] PMH/Surg Hx/FS Hx/Imm Hx Previously Healthy: No Endocrine History: Thyroid Disease Respiratory History: COPD, Asthma GI/ History: Gastroesophageal Reflux Psychological History: Depression - Surgical History Surgical History: Yes Surgery Procedure, Year, and Place: cholecystectomy; b/L knee repairs, cardiac ablation, hysterectomy - Family History Known Family History: Positive: Cardiac Disease - Social History Occupation: Employed Full-time Lives: Alone Alcohol Use: None Substance Use Type: None Smoking Status (MU): Heavy Every Day Tobacco Smoker Amount Used/How Often: 1/2ppd Length of Time of Smoking/Using Tobacco: age 38 Have You Smoked in the Last Year: No Household Exposure Type: Cigarettes - Immunization History Most Recent Tetanus Shot: less than 10 yrs ago Review of Systems All Other Systems Reviewed And Are Negative: Yes Constitutional: Positive: Chills, Fatigue Skin: Positive: Negative Eyes: Positive: Negative ENT: Negative: Sore Throat, Ear Ache, Sinus Congestion Respiratory: Positive: Shortness Of Breath, Cough Cardiovascular: Negative: Palpitations, Chest Pain Gastrointestinal: Positive: Vomiting Genitourinary: Positive: Negative Motor: Positive: Other - recent left wrist fracture and knee injury--WCB Neurovascular: Positive: Negative Musculoskeletal: Positive: Arthralgia, Decreased ROM Neurological: Positive: Headache - off and on Is Patient Immunocompromised?: No Physical Exam Triage Information Reviewed: Yes Appearance: Ill-Appearing - looks mildly unwell, Obese Vital Signs: Initial Vital Signs Temp 98 F 02/27/19 14:18 Pulse 96 02/27/19 14:18 Resp 20 02/27/19 14:18 BP 123/66 02/27/19 14:18 Pulse Ox 97 02/27/19 14:18 Eyes: Positive: Conjunctiva Clear ENT: Positive: Pharynx normal Neck: Positive: Supple, Nontender, No Lymphadenopathy Respiratory: Positive: Decreased breath sounds, Wheezing - prolonged expiration and wheeze throughout. Cardiovascular: Positive: RRR, No Murmur Musculoskeletal Exam: Other - left wrist casted, left knee brace. Neurological: Positive: Alert, Muscle Tone Normal Psychological Exam: Normal Skin Exam: Normal Asthma Course/Dx - Course Course Of Treatment: oral steroids with taper followed by use of steroid inhaler; will renew albuterol for her. Encouraged smokestopping but she is not ready. - Differential Dx/Diagnosis Differential Diagnosis/HQI/PQRI: Acute Asthma, COPD Excerbation Provider Diagnosis: Asthma exacerbation in COPD Discharge - Sign-Out/Discharge Documenting (check all that apply): Patient Departure All imaging exams completed and their final reports reviewed: No Studies - Discharge Plan Condition: Stable Disposition: HOME Prescriptions: Albuterol HFA INHALER* [Ventolin HFA Inhaler*] 2 puff INH Q4H PRN #1 mdi PRN Reason: Wheezing Fluticasone HFA 220 mcg(NF) [Flovent HFA 220 Mcg(NF)] 2 puff INH BID #1 mdi predniSONE TAB* [Deltasone 10 MG TAB*] 40 mg PO DAILY #32 tab Patient Education Materials: Asthma (ED) Forms: *Work Release Referrals: Piero Licona PA [Primary Care Provider] - Additional Instructions: Begin use of steroid course, tapering as directed over the next 16 days. I suggest use of a steroid inhaler using 2 puffs twice daily until you see Vincent Licona in follow up. Swish and spit clear water after use to prevent development of thrush. If your vomiting continues once your asthma is controlled you will need some testing to work out the cause. Follow up with your primary care doctor in 2 weeks. - Billing Disposition and Condition Condition: STABLE Disposition: Home
== END 2019-02-27 15:17 | disposition home or self-care (01) ==
LOC: UCCORT 14:07
DX: J44.1 Chronic obstructive pulmonary disease with (acute) exacerbation (principal); E07.9 Disorder of thyroid, unspecified; K21.9 Gastro-esophageal reflux disease without esophagitis; F32.9 Major depressive disorder, single episode, unspecified; F17.210 Nicotine dependence, cigarettes, uncomplicated; Z88.5 Allergy status to narcotic agent; Z88.0 Allergy status to penicillin; Z91.040 Latex allergy status
CPT/HCPCS: 99212; G0463

== ENCOUNTER 2019-06-02 09:03 | Emergency (ER) | payer BC ==
--- OUTSIDE RECORDS SUMMARY | 2019-06-02 09:26 | XMS REPORT | Continuity of Care Document ---
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 [phone] Offbearer Problems Active Problems Provider Date Knee pain Jessica Villela MD Onset: 04/03/2019 Localized, primary osteoarthritis Jessica Villela MD Onset: 04/03/2019 Mallet finger Cralene Shannon PA Onset: 04/25/2018 Fracture distal phalanx of thumb Carlene Shannon PA Onset: 04/25/2018 Social History Type Date Description Comments Sex Unknown Tobacco Use Start: Unknown Patient is a current cigarette 20 YEARS smoker, smokes every day Tobacco Use Start: Unknown Current Cigarette Smoker 5-10 Cigarettes Daily Smoking Status Reviewed: 05/01/19 Current Cigarette Smoker 5-10 Cigarettes Daily ETOH Use Rarely consumes alcohol Recreational Drug Use Denies Drug Use Tobacco Use Start: Unknown Patient is a current smoker, smokes every day Enjoy Exercising Does not enjoy exercising Tattoo/Piercing Tattoo Tattoo/Piercing Pierced ears Tattoo/Piercing Pierced Tongue Smoke Alarms Yes Allergies, Adverse Reactions, Alerts Active Allergies Reaction Severity Comments Date Latex 04/25/2018 Penicillin 04/25/2018 Aspirin 04/25/2018 Medications Active Medications SIG Qnty Indications Ordering Provider Date Albuterol Inhaler 2 puffs prn 1units Unknown 90mcg/Act Aerosol Synthroid 1 po qd Unknown 75mcg Tablets Quetiapine Fumarate 1 by mouth every [place], day MD Jeancarlos 50mg Tablets Omeprazole 1 by mouth every Unknown 20mg day Capsules DR Breo Ellipta inhale 1 dose by Unknown mouth once daily 100-25mcg/Inh Aerosol Xarelto Unknown Venlafaxine HCL ER Take 3 Capsules Unknown 75mg By Mouth Daily Caps ER 24HR History Medications Diclofenac Sodium 1 tab twice a 60tabs Flower Chandra MD 11/29/2018 - 50mg day with food 04/03/[address] Medications Administered in Office Medication SIG Qnty Indications Ordering Provider Date Depomedrol 40mg/1cc Jessica Villela MD 04/17/2019 (methylprednisolone acetate) Injection Betamethasone Acetate & Marcie Alvarado [facility] 02/10/2019 Sodium Phosphate 3 MG Of Each Injection Depomedrol 40mg/1cc Flower Chandra MD 01/15/2019 (methylprednisolone acetate) Injection Betamethasone Acetate & Marcie Alvarado, [facility] 12/26/2018 Sodium Phosphate 3 MG Of Each Injection Immunizations Description No Information Available Vital Signs Date Vital Result Comment 05/29/2019 9:39am BP Systolic Sitting Left Arm 108 mmHg BP Diastolic Sitting Left Arm 64 mmHg Body Temperature 99.2 F Heart Rate 92 /min Respiratory Rate 20 /min Height 67.5 inches 5'7.50" Weight 231.00 lb BMI (Body Mass Index) 35.6 kg/m2 BSA (Body Surface Area) 2.16 m2 [place] body weight in kilograms 62 kg O2 % BldC Oximetry 96 % 05/01/2019 8:58am BP Systolic Sitting Right Arm 101 mmHg BP Diastolic Sitting Right Arm 69 mmHg Body Temperature 97.3 F Heart Rate 86 /min Height 67.5 inches 5'7.50" Weight 230.00 lb BMI (Body Mass Index) 35.5 kg/m2 BSA (Body Surface Area) 2.16 m2 [place] body weight in kilograms 62 kg Results Test Date Facility Test Result H/L Range Note Laboratory test 11/29/2018 [facility] Sedimentation Rate 29 mm/hr Normal 2-45 1 finding [address] [place] [address] [phone] Uric Acid 3.5 mg/dL Normal 2.6-6.0 Calcium 8.3 mg/dL Low 8.5-10.1 Total Protein 7.4 g/dL Normal 6.4-8.2 Albumin 3.6 g/dL Normal 3.4-5.0 Alb/Glob 0.9 ratio Alkaline Phosphatase 84 U/L Normal 45-117 Rheumatoid Factor Screen < 10.0 IU/mL Normal 0.0-15.0 Globulin 3.8 g/dL Normal 1.9-4.3 Antinuclear Antibodies, Ifa Negative . 2 1 This result was obtained with an ESR method that is not based on the standard Westergren Method. When comparing results obtained from the traditional Westergren ESR and this method it is important to refer to the reference range for each method. Method: Capillary Photometry 2 Negative <1:80 Borderline 1:80 Positive >1:80 Performed at: [facility] [id number] Field Broomer: Nini Lord MD, Phone: [phone] Procedures Date Code Description Status 04/17/2019 Asp./Injection major joint Completed 02/10/2019 Injection:Tendon Sheath,Lig. Cyst Completed 02/10/2019 Injection:Tendon Sheath,Lig. Cyst Completed 01/29/2019 97075 Application of Cast short arm Completed 01/15/2019 14531 Radiology, Wrist Complete Completed 01/15/2019 Asp./Injection major joint Completed 12/24/2018 32488 Nerve Conduction 7-8 Studies Completed 12/24/2018 04582 Needle Electromyography Complete, Five Or More Muscles Completed Studied 11/29/2018 14329 Radiology, Hand: Minimum Three Views Completed 08/06/2008 11558634 Mammogram Completed Medical Devices Description No Information Available Encounters Type Date Location Provider Dx Diagnosis Office Visit 05/01/2019 Physical Jessica Dwyer MD M17.12 Unilateral primary 9:00a & Infectious osteoarthritis, Disease left knee M25.562 Pain in left knee Z71.6 Tobacco abuse counseling Office Visit 04/03/2019 Vasquez Pelaez7.12 Unilateral primary 1:00p Godwin & MD Jessica osteoarthritis, left Infectious knee Disease M25.562 Pain in left knee Z71.6 Tobacco abuse counseling Office Visit 02/25/2019 Blake Chandra M17.12 Unilateral primary 3:30p Office MD Flower osteoarthritis, left knee Office Visit 02/21/2019 Blake Chandra M17.12 Unilateral primary 2:30p Office MD Flower osteoarthritis, left knee Office Visit 01/29/2019 Orthopaedic Chandra, M24.232 Disorder of 10:15a Office MD Flower ligament, left wrist M67.432 Ganglion, left wrist M65.4 Radial styloid tenosynovitis [de Quervain] 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, left wrist Office Visit 01/15/2019 Blake Chandra, 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, [...] in left hand R20.0 Anesthesia of skin Assessments Date Code Description Provider 05/29/2019 M17.12 Unilateral primary osteoarthritis, left Flower Chandra MD knee 05/01/2019 M17.12 Unilateral primary osteoarthritis, left Jessica Villela MD knee 05/01/2019 M25.562 Pain in left knee Jessica Villela MD 05/01/2019 Z71.6 Tobacco abuse counseling Jessica Villela MD 04/17/2019 M17.12 Unilateral primary osteoarthritis, left Jessica Villela MD knee 04/17/2019 M25.562 Pain in left knee Jessica Villela MD 04/17/2019 M17.12 Unilateral primary osteoarthritis, left Jessica Villela MD knee 04/17/2019 M25.562 Pain in left knee Jessica Villela MD 04/03/2019 M17.12 Unilateral primary osteoarthritis, left Jessica Villela MD knee 04/03/2019 M25.562 Pain in left knee Jessica Villela MD 04/03/2019 Z71.6 Tobacco abuse counseling Jessica Villela MD 02/25/2019 M17.12 Unilateral primary osteoarthritis, left Flower Chandra MD knee 02/21/2019 M17.12 Unilateral primary osteoarthritis, left Flower Chandra MD knee 02/10/2019 M65.341 Trigger finger, right ring finger Marcie Alvarado, [facility] 02/10/2019 M65.331 Trigger finger, right middle finger Marcie Alvarado, [facility] 01/29/2019 M24.232 Disorder of ligament, left wrist Flower Chandra MD 01/29/2019 M67.432 Ganglion, left wrist Flower Chandra MD 01/29/2019 M65.4 Radial styloid tenosynovitis [Flower Pulliam MD Quervain] 01/29/2019 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, left wrist Flower Chandra MD 01/15/2019 M22.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 patellae, left knee Flower Chandra MD 01/15/2019 M17.12 Unilateral primary osteoarthritis, left Flower Chandra MD knee 01/15/2019 M65.4 Radial styloid tenosynovitis [Flower Pulliam MD Quervain] 12/31/2018 S63.502D Unspecified sprain of left wrist, Flower Chandra MD subsequent encounter 12/31/2018 S63.502D Unspecified sprain of left wrist, Flower Chandra MD subsequent encounter 12/31/2018 S83.232D Complex tear of medial meniscus, current Flower Chandra MD injury, left knee, subsequent encounter 12/31/2018 S83.232D Complex tear of medial meniscus, current Flower Chandra MD injury, left knee, 12/31/2018 W18.49xA Other slipping, tripping and stumbling Flower Chandra MD without falling, initial encounter 12/31/2018 W18.49xA Oth slipping, tripping and stumbling w/o Flower Chandra MD falling, init 12/31/2018 Y99.0 Civilian activity done for income or pay Flower Chandra MD 12/31/2018 Y99.0 Civilian activity done for income or pay Flower Chandra MD 12/26/2018 M65.331 Trigger finger, right middle finger Marcie Alvarado, [facility] 12/26/2018 M65.341 Trigger finger, right ring finger Marcie Alvarado, [facility] 12/24/2018 M79.641 Pain in right hand Jessica Villela MD 12/24/2018 M25.531 Pain in right wrist Jessica Villela MD 12/24/2018 M79.642 Pain in left hand Jessica Villela MD 12/24/2018 M25.532 Pain in left wrist Jessica Villela MD 12/24/2018 M79.644 Pain in right finger(s) Jessica Villela MD 12/24/2018 M79.645 Pain in left finger(s) Jessica Villela MD 12/24/2018 R20.0 Anesthesia of skin Jessica Villela MD 11/29/2018 M79.641 Pain in right hand Marcie Alvarado S., [facility] 11/29/2018 M25.531 Pain in right wrist Marcie Alvarado S., [facility] 11/29/2018 M79.642 Pain in left hand Marcie Alvarado S., [facility] 11/29/2018 R20.0 Anesthesia of skin Marcie Alvarado S., [facility] Plan of Treatment No Information Available Functional Status Description No Information Available Mental Status Description No Information Available Referrals Refer to Dr Reason for Referral Status Appt Date Pierre Maynard MD left wrist SL and TFCC tears Appt after 2 on Closed Sunday [address] [place] [address] [phone] Jessica Villela MD Left Knee Evaluation Closed 04/03/2019 [address] [place] [address] [phone]
--- OUTSIDE RECORDS SUMMARY | 2019-06-02 09:27 | XMS REPORT | Continuity of Care Document ---
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 02/10/2019 Sodium Phosphate 3 MG Of Each Injection Depomedrol 40mg/1cc Flower Chandra MD 01/15/2019 (methylprednisolone acetate) Injection Betamethasone Acetate & Marcie Alvarado, [facility] 12/26/2018 Sodium Phosphate 3 MG Of Each Injection Immunizations Description No Information Available Vital Signs Date Vital Result Comment 05/01/2019 8:58am BP Systolic Sitting Right Arm 101 mmHg BP Diastolic Sitting Right Arm 69 mmHg Body Temperature 97.3 F Heart Rate 86 /min Height 67.5 inches 5'7.50" Weight 230.00 lb BMI (Body Mass Index) 35.5 kg/m2 BSA (Body Surface Area) 2.16 m2 [place] body weight in kilograms 62 kg 04/17/2019 2:54pm BP Systolic Sitting Right Arm 113 mmHg BP Diastolic Sitting Right Arm 81 mmHg Body Temperature 97.5 F Heart Rate 87 /min Height 67.5 inches 5'7.50" Weight 231.00 lb BMI (Body Mass Index) 35.6 kg/m2 BSA (Body Surface Area) 2.16 m2 [place] body weight in kilograms 62 kg Results Test Date Facility Test Result H/L Range Note Laboratory test 11/29/2018 [facility] Sedimentation Rate 29 mm/hr Normal 2-45 1 finding [address] [place] [address] [phone] Uric Acid 3.5 mg/dL Normal 2.6-6.0 Calcium [...] <1:80 Borderline 1:80 Positive >1:80 Performed at: [facility] [id number] Senior Sous Chef: Nini Lord MD, Phone: [phone] Procedures Date Code Description Status 04/17/2019 Asp./Injection major joint Completed 02/10/2019 Injection:Tendon Sheath,Lig. Cyst Completed 02/10/2019 Injection:Tendon Sheath,Lig. Cyst Completed 01/29/2019 00369 Application of Cast short arm Completed 01/15/2019 22760 Radiology, Wrist Complete Completed 01/15/2019 Asp./Injection major joint Completed 12/24/2018 12091 Nerve Conduction 7-8 Studies Completed 12/24/2018 22655 Needle Electromyography Complete, Five Or More Muscles Completed Studied 11/29/2018 03798 Radiology, Hand: Minimum Three Views Completed 08/06/2008 27480057 Mammogram Completed Medical Devices Description No Information Available Encounters Type Date Location Provider Dx Diagnosis Office Visit 05/01/2019 Physical Medicine Jessica Villela MD M17.12 Unilateral primary 9:00a & Infectious osteoarthritis, Disease left knee M25.562 Pain in left knee Office Visit 04/03/2019 Rl Villela M17.12 Unilateral primary 1:00p Godwin & MD Jessica osteoarthritis, left Infectious knee Disease M25.562 Pain in left knee Z71.6 Tobacco abuse counseling Office Visit 02/25/2019 Blake Chandra M17.12 Unilateral primary 3:30p Office MD Flower osteoarthritis, left knee Office Visit 02/21/2019 Blake Chandra M17.12 Unilateral primary 2:30p Office MD Flower osteoarthritis, left knee Office Visit 01/29/2019 Blake Chandra, M24.232 Disorder of 10:15a Office MD Flower ligament, left wrist M67.432 Ganglion, left wrist M65.4 Radial styloid tenosynovitis [de Quervain] 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, left wrist Office Visit 01/15/2019 [facility], 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 02/10/2019 M65.331 Trigger finger, right middle finger Marcie Alvarado, [facility] 01/29/2019 M24.232 Disorder of ligament, left wrist [...] Trigger finger, right middle finger Marcie Alvarado, [facility] 12/26/2018 M65.341 Trigger finger, right ring finger Marcie Alvarado, [facility] 12/24/2018 M79.641 Pain in right hand Jessica [...] 11/29/2018 M79.641 Pain in right hand Marcie Alvarado, [facility] 11/29/2018 M25.531 Pain in right wrist Marcie Alvarado, [facility] 11/29/2018 M79.642 Pain in left hand Marcie Alvarado, [facility] 11/29/2018 R20.0 Anesthesia of skin Marcie Alvarado, [facility] Plan of Treatment Future Appointment(s):05/28/2019 3:15 pm - Flower Chandra MD at Orthopaedic Uaxebw8705/01/2019 - Jessica Villela, MDM17.12 Unilateral primary osteoarthritis, left kneeM25.562 Pain in left kneeComments:Ms. Toussaint did not experience sustained relief from steroid injection to the left knee. She has been not been able to participate in physical therapy. I have nothing else to offer at this point. I encouraged her to try to fit physical therapy into her schedule and, if she does, to return for my evaluation once she has had several weeks of physical therapy treatment.Follow up:When necessary. Functional Status Description No Information Available Mental Status Description No Information Available Referrals Refer to Reason for Referral Status Appt Date Pierre Maynard MD left wrist SL and TFCC tears Appt after 2 on Closed Frank [address] [place] [address] [phone] Jessica Villela MD Left Knee Evaluation Closed 04/03/2019 [address] [place] [address] [phone]
--- OUTSIDE RECORDS SUMMARY | 2019-06-02 09:27 | XMS REPORT | Continuity of Care Document ---
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 Omeprazole 1 by mouth every Unknown 20mg day Capsules DR Nicky [place]atham inhale 1 dose by Unknown mouth once daily 100-25mcg/Inh Aerosol Venlafaxine HCL 1 by mouth every Unknown 75mg day Tablets Xarelto Unknown History Medications Diclofenac Sodium 1 tab twice a 60tabs Flower Chandra MD 11/29/2018 - 50mg day with food 04/03/2019 Tablets Medications Administered in Office Medication SIG Qnty Indications Ordering Provider Date Betamethasone Acetate & Marcie Alvarado [facility] 02/10/2019 Sodium Phosphate 3 MG Of Each Injection Depomedrol 40mg/1cc Flower Chandra MD 01/15/2019 (methylprednisolone acetate) Injection Betamethasone Acetate & Marcie Alvarado, [facility] 12/26/2018 Sodium Phosphate 3 MG Of Each Injection Immunizations Description No Information Available Vital Signs Date Vital Result Comment 04/03/2019 12:51pm BP Systolic Sitting Right Arm 133 mmHg BP Diastolic Sitting Right Arm 84 mmHg Body Temperature 97.3 F Heart Rate 92 /min Height 67.5 inches 5'7.50" Weight 226.00 lb BMI (Body Mass Index) 34.9 kg/m2 BSA (Body Surface Area) 2.14 m2 [place] body weight in kilograms 62 kg 02/25/2019 3:35pm BP Systolic 121 mmHg BP Diastolic 74 mmHg Body Temperature 97.8 F Heart Rate 86 /min Height 67.5 inches 5'7.50" Weight 220.00 lb BMI (Body Mass Index) 33.9 kg/m2 BSA (Body Surface Area) 2.12 m2 [place] body weight in kilograms 62 kg O2 % BldC Oximetry 93 % Results Test Date Facility Test Result H/L Range Note Laboratory test 11/29/2018 [facility] Sedimentation Rate 29 mm/hr Normal 2-45 1 finding [address] [place] [address] [phone] Uric Acid 3.5 mg/dL Normal 2.6-6.0 Calcium [...] <1:80 Borderline 1:80 Positive >1:80 Performed at: [facility] [id number] Inbound Customer Service Representative: Nini Lord MD, Phone: [phone] Procedures Date Code Description Status 02/10/2019 Injection:Tendon Sheath,Lig. Cyst Completed 02/10/2019 Injection:Tendon Sheath,Lig. Cyst Completed 01/29/2019 47069 Application of Cast short arm Completed 01/15/2019 63695 Radiology, Wrist Complete Completed 01/15/2019 64850 Asp./Injection major joint Completed 12/24/2018 93749 Nerve Conduction 7-8 Studies Completed 12/24/2018 90320 Needle Electromyography Complete, Five Or More Muscles Completed Studied 11/29/2018 17917 Radiology, Hand: Minimum Three Views Completed 08/06/2008 [id number] Mammogram Completed Medical Devices Description No Information Available Encounters Type Date Location Provider Dx Diagnosis Office Visit 02/25/2019 Orthopaedic Office Flower Chandra, M17.12 Unilateral 3:30p primary osteoarthritis, left knee Office Visit 02/21/2019 Orthopaedic Office Flower Chandra M17.12 Unilateral 2:30p primary osteoarthritis, left knee Office Visit 01/29/2019 Orthopaedic Office Flower Chandra, M24.232 Disorder of 10:15a ligament, left wrist M67.432 Ganglion, left wrist M65.4 Radial styloid tenosynovitis [de Quervain] 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, left wrist Office Visit 01/15/2019 Blake Chandra 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, left knee M17.12 Unilateral primary osteoarthritis, left knee M65.4 Radial styloid tenosynovitis [de Quervain] Office Visit 12/31/2018 [facility], S63.502D Unspecified 2:15p Office MD Flower sprain [...] Office Marcie Alvarado M79.641 Pain in S., [facility] right hand M25.531 Pain in right wrist M79.642 Pain in left hand R20.0 Anesthesia of skin Assessments Date Code Description Provider 04/03/2019 M17.12 Unilateral primary osteoarthritis, left Jessica Villela MD knee 04/03/2019 M25.562 Pain in left knee Jessica Villela MD 02/25/2019 M17.12 Unilateral primary osteoarthritis, left Flower Chandra MD knee 02/21/2019 M17.12 Unilateral primary osteoarthritis, left Flower Chandra MD knee 02/10/2019 M65.341 Trigger finger, right ring finger Marcie Alvarado, [facility] 02/10/2019 M65.331 Trigger finger, right middle finger Marcie Alvarado, [facility] 01/29/2019 M24.232 Disorder of ligament, left wrist Flower Chandra MD 01/29/2019 M67.432 Ganglion, left wrist Flower Chandra MD 01/29/2019 M65.4 Radial styloid tenosynovitis [Flower Pulliam MD Quervain] 01/29/2019 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, left wrist Flower Chandra MD 01/15/2019 M22.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 patellae, left knee Flower Chandra MD 01/15/2019 M17.12 Unilateral primary osteoarthritis, left Flower Chandra MD knee 01/15/2019 M65.4 Radial styloid tenosynovitis [de Flower Chandra MD Quervain] 12/31/2018 S63.502D Unspecified sprain of [...] Trigger finger, right middle finger Marcie Alvarado, [facility] 12/26/2018 M65.341 Trigger finger, right ring finger Marcie Alvarado, [facility] 12/24/2018 M79.641 Pain in right hand [...] M79.641 Pain in right hand Marcie Alvarado, [facility] 11/29/2018 M25.531 Pain in right wrist Marcie Alvarado, [facility] 11/29/2018 M79.642 Pain in left hand Marcie Alvarado [facility] 11/29/2018 R20.0 Anesthesia of skin Marcie Alvarado [facility] Plan of Treatment Future Appointment(s):04/17/2019 3:00 pm - Jessica Villela MD at Physical Medicine [facility] Infectious Hcudqzt2505/28/2019 3:15 pm - Flower Chandra MD at Orthopaedic Iacdzh8404/03/2019 - Jessica Villela, MDM17.12 Unilateral primary osteoarthritis, left kneeNew Therapy:Physical TherapyComments: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 Tylenol 650 mg 4 times a day as needed2. Continuebracing3. Injection (see below)4. Physical obhhpnzS61.562 Pain in left kneeComments:Plan steroid injection to the left knee at next visit, exactly 3 months from her previous injection.Follow up:2 weeks. Functional Status Description No Information Available Mental Status Description No Information Available Referrals Refer to Dr Reason for Referral Status Appt Date Jessica Villela MD Left Knee Evaluation Patient Notified 04/03/2019 [address] [place] [address] [phone] Pierre Maynard MD left wrist SL and TFCC tears Appt after 2 on Closed Sunday [address] [place] [address] [phone]
--- OUTSIDE RECORDS SUMMARY | 2019-06-02 09:27 | XMS REPORT | Continuity of Care Document ---
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 Problems Active Problems Provider Date Localized, primary osteoarthritis of the hand Pierre Maynard MD Onset: 02/07 Social History Type Date Description Comments Sex Unknown ETOH Use Never used alcohol Tobacco Use Start: Unknown Heavy tobacco smoker (more than 10 cigarettes/day) Smoking Status Reviewed: 04/04/19 Heavy tobacco smoker (more than 10 cigarettes/day) Exercise Type/Frequency Exercises regularly Allergies, Adverse Reactions, Alerts Active Allergies Reaction Severity Comments Date Penicillin Severe 02/07/2019 Aspirin Severe 02/07/2019 Propoxyphene Severe 02/07/2019 Latex 02/07/2019 Medications Active Medications SIG Qnty Indications Ordering Provider Date Levothyroxine Sodium 1 tab by mouth Neil Licona 75mcg once daily GISELA Caraballo Tablets Venlafaxine HCL ER 1 cap by mouth Neil Licona 75mg twice daily GISELA Caraballo Caps ER 24HR Quetiapine Fumarate 1 tab by mouth Neil Licona 50mg twice daily GISELA Caraballo Tablets Albuterol Sulfate as directed Neil Licona Rashmi RPA (2.5mg/3ML) 0.083% Nebulizer Flovent HFA 2 puffs by mouth Yasmin Barragan 220mcg/Act twice daily MD Yas Aerosol Albuterol Sulfate HFA 2 puffs every 4 Yasmin Barragan hours as needed MD Yas 108(90Base) mcg/Act Aerosol Xarelto 1 tab by mouth Licona Neil 10mg Tablets daily J., GISELA Immunizations Description No Information Available Vital Signs Date Vital Result Comment 04/04/2019 3:10pm Height 69 inches 5'9" Weight 200.00 lb Heart Rate 92 /min BP Systolic Sitting 100 mmHg BP Diastolic Sitting 68 mmHg Respiratory Rate 14 /min Pain Level 5 O2 % BldC Oximetry 93 % BMI (Body Mass Index) 29.5 kg/m2 03/14/2019 3:13pm Heart Rate 93 /min BP Systolic Sitting 120 mmHg BP Diastolic Sitting 70 mmHg Respiratory Rate 16 /min Pain Level 9 O2 % BldC Oximetry 96 % Results Description No Information Available Procedures Date Code Description Status 02/28/2019 29923 Short Arm Cast Application Completed 02/28/2019 11887 Short Arm Cast Application Completed 02/07/2019 16645 Short Arm Cast Application Completed Medical Devices Description No Information Available Encounters Type Date Location Provider Dx Diagnosis Office Visit 03/14/2019 Orthopedic Pierre Maynard S60.222D Contusion of left 3:15p [facility] AT MD russell, subsequent [place] encounter Office Visit 02/28/2019 Orthopedic Pierre Maynard S60.222D Contusion of left 3:00p [facility] AT MD [place], subsequent [place] encounter S60.222D Contusion of left hand, subsequent encounter Office Visit 02/07/2019 2:30p Orthopedic Pierre M18.12 Unil primary [facility] MD Caesar osteoarth of first AT [place] carpometacarp joint, l hand S60.222A Contusion of left hand, initial encounter Assessments Date Code Description Provider 03/14/2019 S60.222D Contusion of left hand, subsequent encounter Pierre Maynard MD 02/28/2019 S60.222D Contusion of left hand, subsequent encounter Pierre Maynard MD 02/28/2019 S60.222D Contusion of left hand, subsequent encounter Pierre Maynard MD 02/07/2019 M18.12 Unilateral primary osteoarthritis of first Pierre Maynard MD carpometacarpal j 02/07/2019 S60.222A Contusion of left hand, initial encounter Pierre Maynard MD Plan of Treatment Future Appointment(s):06/06/2019 3:00 pm - Pierre Maynard MD at [facility] Functional Status Description No Information Available Mental Status Description No Information Available Referrals Description No Information Available
[2019-06-02 10:18] VITALS: BP 115/67
[2019-06-02] MEDS ORDERED: predniSONE TAB* 20 MG PO ONE (10:32)
[2019-06-02] MEDS ORDERED: Albuterol/Ipratropium NEB.SOL* Albuterol 2.5 MG/Ipratropium 0.5 MG 3 ML INH ONE (10:32)
--- NOTE | 2019-06-02 10:36 | ED ---
Respiratory - HPI Summary HPI Summary: 53 yr old female with the complaint of coughing, SOB. Onset over the past 7 days. She first started with a runny nose, sore throat, and post nasal drip, and then coughing that has gotten worse. She is short of breath, wheezing, and coughing a lot. She is a smoker with a prior history of COPD. She has no other complaints. - History of Current Complaint Chief Complaint: UCGeneralIllness Stated Complaint: WHEEZY COUGH CONGESTION Time Seen by Provider: 06/02/19 10:20 Pain Intensity: 6 - Allergy/Home Medications Allergies/Adverse Reactions: Allergies Allergy/AdvReac Type Severity Reaction Status Date / Time codeine Allergy Hives Verified 06/02/19 10:20 latex Allergy Rash Verified 06/02/19 10:20 Penicillins Allergy Difficulty Verified 06/02/19 10:20 Breathing propoxyphene Allergy Anaphylatic Verified 06/02/19 10:20 Shock aspirin Allergy Difficulty Uncoded 06/02/19 10:20 Breathing PMH/Surg Hx/FS Hx/Imm Hx Endocrine/Hematology History: Reports: Hx Thyroid Disease - hypo Denies: Hx Diabetes Cardiovascular History: Denies: Hx Hypertension, Hx Pacemaker/ICD Respiratory History: Reports: Hx Asthma, Hx Chronic Obstructive Pulmonary Disease (COPD) History: Denies: Hx Renal Disease Sensory History: Denies: Hx Hearing Aid Psychiatric History: Denies: Hx Panic Disorder - Surgical History Surgery Procedure, Year, and Place: cholecystectomy; b/L knee repairs, cardiac ablation, hysterectomy Infectious Disease History: No Infectious Disease History: Denies: Traveled Outside the [place] in Last 30 Days - Family History Known Family History: Positive: Cardiac Disease - Social History Alcohol Use: None Substance Use Type: Reports: None Smoking Status (MU): Heavy Every Day Tobacco Smoker Amount Used/How Often: 1/2ppd Length of Time of Smoking/Using Tobacco: age 38 Have You Smoked in the Last Year: No Review of Systems Constitutional: Negative Positive: Sore Throat, Nasal Discharge Positive: Shortness Of Breath, Cough All Other Systems Reviewed And Are Negative: Yes Physical Exam Triage Information Reviewed: Yes Vital Signs On Initial Exam: Initial Vitals Temp Pulse Resp BP Pulse Ox 97.9 F 92 20 115/67 95 06/02/19 10:13 06/02/19 10:13 06/02/19 10:13 06/02/19 10:13 06/02/19 10:13 Vital Signs Reviewed: Yes Appearance: Positive: Well-Appearing, No Pain Distress Skin: Positive: Warm, Skin Color Reflects Adequate Perfusion Head/Face: Positive: Normal Head/Face Inspection Eyes: Positive: EOMI ENT: Positive: Nasal congestion, Nasal drainage, Sinus tenderness Neck: Positive: Nontender Respiratory/Lung Sounds: Positive: Decreased Breath Sounds - bilateral, Wheezes - bialteral. Negative: Stridor Cardiovascular: Positive: RRR. Negative: Murmur Abdomen Description: Negative: Distended Musculoskeletal: Positive: Strength/ROM Intact Neurological: Positive: Sensory/Motor Intact, Alert, Oriented to Person Place, Time, CN Intact II-III Psychiatric: Positive: Normal Diagnostics - Vital Signs Vital Signs Temp Pulse Resp BP Pulse Ox 06/02/19 10:13 97.9 F 92 20 115/67 95 - Laboratory Lab Statement: Any lab studies that have been ordered have been reviewed, and results considered in the medical decision making process. - Radiology chest pa lat Radiology Interpretation Completed By: Radiologist - COPD - EKG 06/02/19 Cardiac Rate: NL EKG Rhythm: Sinus Rhythm ST Segment: Normal Ectopy: None Re-Evaluation - Re-Evaluation First Eval Re-Evaluation Time: 11:16 Change: Improved Comment: She feels much better after her neb. Lungs better air movement and less wheezing. Disposition - Course Course Of Treatment: 53 yr old with sinusitis, and COPD exacerbation. DC home. FU with PMD. Prednisone and - Diagnoses Provider Diagnoses: Sinusitis, COPD (chronic obstructive pulmonary disease) Discharge ED - Sign-Out/Discharge Documenting (check all that apply): Patient Departure All imaging exams completed and their final reports reviewed: Yes - Discharge Plan Condition: Good Disposition: HOME Prescriptions: DOXYcycline CAP(*) [DOXYcycline 100MG CAP(*)] 100 mg PO BID #20 cap predniSONE TAB* [Deltasone 20 MG TAB*] 40 mg PO DAILY #8 tab Patient Education Materials: Sinusitis (ED), COPD (Chronic Obstructive Pulmonary Disease) (ED) Referrals: Piero Licona PA [Primary Care Provider] - 2 Days - Billing Disposition and Condition Condition: GOOD Disposition: Home
== END 2019-06-02 11:30 | disposition home or self-care (01) ==
LOC: UCCORT 09:03
DX: J44.9 Chronic obstructive pulmonary disease, unspecified (principal); J32.9 Chronic sinusitis, unspecified; F17.210 Nicotine dependence, cigarettes, uncomplicated; Z88.5 Allergy status to narcotic agent; Z91.040 Latex allergy status; Z88.0 Allergy status to penicillin; Z88.8 Allergy status to other drugs, medicaments and biological substances
CPT/HCPCS: 71046; 93005; 99212; A9270-GY; G0463; J7512

== ENCOUNTER 2019-09-30 07:05 | Emergency (ER) | payer BC ==
--- OUTSIDE RECORDS SUMMARY | 2019-09-30 07:11 | XMS REPORT | Continuity of Care Document ---
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 Problems Active Problems Provider Date Localized, primary osteoarthritis of the hand Pierre Maynard MD Onset: 02/07 Social History Type Date Description Comments Sex Unknown ETOH Use Never used alcohol Tobacco Use Start: Unknown Heavy tobacco smoker (more than 10 cigarettes/day) Smoking Status Reviewed: 08/08/19 Heavy tobacco smoker (more than 10 cigarettes/day) Exercise Type/Frequency Exercises regularly Allergies, Adverse Reactions, Alerts Active Allergies Reaction Severity Comments Date Penicillin Severe 02/07/2019 Aspirin Severe 02/07/2019 Propoxyphene Severe 02/07/2019 Latex 02/07/2019 Medications Active Medications SIG Qnty Indications Ordering Date Provider Tramadol HCL 1-2 tablets by 20tabs Pierre Maynard, 09/04/2019 50mg Tablets mouth every 6 MD hours as needed pain Levothyroxine Sodium 1 tab by mouth Neil Licona once daily GISELA Caraballo 75mcg Tablets Venlafaxine HCL ER 1 cap by mouth in Neil Licona 75mg the morning and 2 JGISELA Soni Caps ER 24HR caps by mouth in the evening Quetiapine Fumarate 1 tab by mouth Neil Licona 50mg twice daily JNae RPA Tablets Albuterol Sulfate as directed Neil Licona Rashmi RPA (2.5mg/3ML) 0.083% Nebulizer Albuterol Sulfate HFA 2 puffs every 4 Yasmin Barragan hours as needed MD Yas 108(90Base) mcg/Act Aerosol Omeprazole 1 cap by mouth Unknown 20mg Capsules twice daily DR Atorvastatin Calcium 1 by mouth every Unknown 20mg day Tablets Polyethylene Glycol mix one packet Unknown 3350 with juice or 3350NF Packet water and drink daily Medications Administered in Office Medication SIG Qnty Indications Ordering Provider Date Celestone 3 mg and 3mg Pierre Maynard MD 06/06/2019 Injection Immunizations Description No Information Available Vital Signs Date Vital Result Comment 09/19/2019 2:44pm Weight 234.00 lb Heart Rate 68 /min BP Systolic 127 mmHg BP Diastolic 64 mmHg Respiratory Rate 16 /min Body Temperature 99.7 F 08/08/2019 1:52pm Height 69 inches 5'9" Weight 231.00 lb Heart Rate 79 /min BP Systolic Sitting 118 mmHg BP Diastolic Sitting 80 mmHg Respiratory Rate 16 /min Pain Level 9 O2 % BldC Oximetry 96 % BMI (Body Mass Index) 34.1 kg/m2 Results Description No Information Available Procedures Date Code Description Status 09/04/2019 31022 Trigger Finger Release Incision / Tendon Sheath Incision Completed 09/04/2019 74334 Trigger Finger Release Incision / Tendon Sheath Incision Completed 09/04/2019 77159 Trigger Finger Release Incision / Tendon Sheath Incision Completed 09/04/2019 79478 Trigger Finger Release Incision / Tendon Sheath Incision Completed 06/06/2019 69569 Inject/Drain Joint/Bursa Small W/O US Completed 04/04/2019 88567 Rad Exam; Hand Comp Completed Medical Devices Description No Information Available Encounters Type Date Location Provider Dx Diagnosis Office Visit 08/08/2019 [place] Jos[place] Maynard M18.12 Unil primary 1:45p at [facility] osteoarth of first carpometacarp joint, l hand Office Visit 06/27/2019 Meagan Maynard M65.331 Trigger finger, 2:30p at [facility] right middle finger M65.341 Trigger finger, right ring finger Office Visit 06/06/2019 Meagan Jay M18.12 Unil primary 3:00p [facility] osteoarth of first [place] carpometacarp joint, l hand Office Visit 04/04/2019 Meagan Jay S60.222D Contusion of left 3:00p [facility] hand, subsequent [place] encounter Assessments Date Code Description Provider 09/04/2019 M65.331 Trigger finger, right middle finger JADE Contreras 09/04/2019 M65.331 Trigger finger, right middle finger Pierre Maynard MD 09/04/2019 M65.341 Trigger finger, right ring finger JADE Contreras 09/04/2019 M65.341 Trigger finger, right ring finger Pierre Maynard MD 08/08/2019 M65.331 Trigger finger, right middle finger Pierre Maynard MD 08/08/2019 M18.12 Unilateral primary osteoarthritis of first Pierre Maynard MD carpometacarpal joint, left hand 08/08/2019 M65.341 Trigger finger, right ring finger Pierre Maynard MD 06/27/2019 M65.331 Trigger finger, right middle finger Pierre Maynard MD 06/27/2019 M65.341 Trigger finger, right ring finger Pierre Maynard MD 06/06/2019 M18.12 Unilateral primary osteoarthritis of first Pierre Maynard MD carpometacarpal joint, left hand 04/04/2019 S60.222D Contusion of left hand, subsequent encounter Pierre Maynard MD Plan of Treatment Future Appointment(s):10/10/2019 3:00 pm - Pierre Maynard MD at [facility] at [facility]/26/2020 10:45 am - Pierre Maynard MD at [facility] [place] Functional Status Description No Information Available Mental Status Description No Information Available Referrals Description No Information Available
--- OUTSIDE RECORDS SUMMARY | 2019-09-30 07:12 | XMS REPORT | Continuity of Care Document ---
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 Problems Active Problems Provider Date Knee pain [...] Smoker 5-10 Cigarettes Daily Smoking Status Reviewed: 08/07/19 Current Cigarette Smoker 5-10 Cigarettes Daily ETOH [...] 75mcg Tablets Quetiapine Fumarate 1 by mouth twice 90tabs Jacquelin a day MD Jeancarlos 50mg Tablets Omeprazole 1 by mouth twice 30caps Unknown 20mg a day Capsules DR Calderon HCL ER Take 3 Capsules Unknown 75mg By Mouth Daily Caps ER 24HR Polyethylene Glycol Hugo Wolf, 3350 3350NF Packet Ibuprofen 200 4 tabs by mouth Unknown 200mg three times a day Tablets as needed Medications Administered in Office Medication SIG Qnty Indications Ordering Provider Date Depomedrol 40mg/1cc Jessica Villela MD 04/17/2019 (methylprednisolone acetate) Injection Betamethasone Acetate & Marcie Alvarado, [facility] 02/10/2019 Sodium Phosphate 3 MG Of Each Injection Depomedrol 40mg/1cc Flower Chandra MD 01/15/2019 (methylprednisolone acetate) Injection Betamethasone Acetate & Marcie Alvarado, [facility] 12/26/2018 Sodium Phosphate 3 MG Of Each Injection Immunizations Description No Information Available Vital Signs Date Vital Result Comment 08/07/2019 11:17am BP Systolic Sitting Left Arm 127 mmHg BP Diastolic Sitting Left Arm 75 mmHg Heart Rate 91 /min 05/29/2019 9:39am BP Systolic Sitting Left Arm 108 mmHg BP Diastolic Sitting Left Arm 64 mmHg Body Temperature 99.2 F Heart Rate 92 /min Respiratory Rate 20 /min Height 67.5 inches 5'7.50" Weight 231.00 lb BMI (Body Mass Index) 35.6 kg/m2 BSA (Body Surface Area) 2.16 m2 [place] body weight in kilograms 62 kg O2 % BldC Oximetry 96 % Results Description No Information Available Procedures Date Code Description Status 04/17/201946500 Asp./Injection major joint Completed 02/10/2019 Injection:Tendon Sheath,Lig. Cyst Completed 02/10/2019 Injection:Tendon Sheath,Lig. Cyst Completed 08/06/2008 02558024 Mammogram Completed Medical Devices Description No Information Available Encounters Type Date Location Provider Dx Diagnosis Office Visit 08/07/2019 Orthopaedic Office Flower Chandra M17.12 Unilateral primary 11:30a osteoarthritis, left knee M89.252 Other disorders of bone development and growth, left femur Office Visit 05/29/2019 Orthopaedic Sandro Chandra.12 Unilateral primary 9:45a Office MD Flower osteoarthritis, left knee Office Visit 05/01/2019 Physical Medicine Jessica Villela M17.12 Unilateral primary 9:00a & Infectious MD osteoarthritis, left Disease knee M25.562 Pain in left knee Z71.6 Tobacco abuse counseling Office Visit 04/03/2019 Physical Manohar, M17.12 Unilateral primary 1:00p [facility] osteoarthritis, left Infectious knee Disease M25.562 Pain in left knee Z71.6 Tobacco abuse counseling Office Visit 02/25/2019 Orthopaedic Prateek, M17.12 Unilateral primary 3:30p Office MD Flower osteoarthritis, left knee Office Visit 02/21/2019 Orthopaedic Prateek M17.12 Unilateral primary 2:30p Office MD [place] osteoarthritis, left knee Assessments Date Code Description Provider 08/07/2019 M17.12 Unilateral primary osteoarthritis, left Flower Chandra MD knee 08/07/2019 M89.252 Other disorders of bone development and Flower Chandra MD growth, left femur 05/29/2019 M17.12 Unilateral primary osteoarthritis, left Flower [...] Trigger finger, right ring finger Marcie Alvarado, [facility] 02/10/2019 M65.331 Trigger finger, right middle finger Marcie Alvarado, [facility] Plan of Treatment No Information Available Functional Status Description No Information Available Mental Status Description No Information Available Referrals Description No Information Available
--- OUTSIDE RECORDS SUMMARY | 2019-09-30 07:12 | XMS REPORT | Continuity of Care Document ---
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 Problems Active Problems Provider Date Localized, primary [...] by mouth Neil Licona 75mcg once daily JNae, RPA Tablets Venlafaxine HCL ER 1 cap by mouth in Neil Licona 75mg the morning and 2 J., RPA Caps ER 24HR caps by mouth in the evening Quetiapine Fumarate 1 tab by mouth Neil Licona 50mg twice daily JNae, RPA Tablets Albuterol Sulfate as directed Neil Licona JNae, RPA (2.5mg/3ML) 0.083% Nebulizer Albuterol Sulfate HFA 2 puffs every 4 Yasmin Barragan hours as needed MD Yas 108(90Base) mcg/Act Aerosol Omeprazole 1 cap by mouth Unknown 20mg Capsules DR twice daily Atorvastatin Calcium 1 by mouth every Unknown 20mg day Tablets Polyethylene Glycol mix one packet Unknown 3350 with juice or 3350NF Packet water and drink daily Medications Administered in Office Medication SIG Qnty Indications Ordering Provider Date Celestone 3 mg and 3mg Pierre Maynard MD 06/06/2019 Injection Immunizations Description No Information Available Vital Signs Date Vital Result Comment 08/08/2019 1:52pm Height 69 inches 5'9" Weight 231.00 lb Heart Rate 79 /min BP Systolic Sitting 118 mmHg BP Diastolic Sitting 80 mmHg Respiratory Rate 16 /min Pain Level 9 O2 % BldC Oximetry 96 % BMI (Body Mass Index) 34.1 kg/m2 06/27/2019 2:30pm Height 69 inches 5'9" Weight 200.00 lb Heart Rate 81 /min BP Systolic Sitting 110 mmHg BP Diastolic Sitting 76 mmHg Respiratory Rate 16 /min Pain Level 8 O2 % BldC Oximetry 95 % BMI (Body Mass Index) 29.5 kg/m2 Results Description No Information Available Procedures Date Code Description Status 06/06/2019 84334 Inject/Drain Joint/Bursa Small W/O US Completed 04/04/2019 98860 Rad Exam; Hand Comp Completed 02/28/2019 28116 Short Arm Cast Application Completed 02/28/2019 36500 Short Arm Cast Application Completed 02/07/2019 76121 Short Arm Cast Application Completed Medical Devices Description No Information Available Encounters Type Date Location Provider Dx Diagnosis Office Visit 06/27/2019 [facility] Pierre Maynard, M65.331 Trigger finger, 2:30p at [place] right middle finger M65.341 Trigger finger, right ring finger Office Visit 06/06/2019 Meagan Jay M18.12 Unil primary 3:00p [facility] osteoarth of first [place] carpometacarp joint, l hand Office Visit 04/04/2019 Meagan Jay S60.222D Contusion of left 3:00p [facility] hand, subsequent [place] encounter Office Visit 03/14/2019 Meagan Jay S60.222D Contusion of left 3:15p [facility] hand, subsequent [place] encounter Office Visit 02/28/2019 Meagan Jay S60.222D Contusion of left 3:00p [facility] hand, subsequent [place] encounter S60.222D Contusion of left hand, subsequent encounter Office Visit 02/07/2019 [place] Pierre M18.12 Unil primary 2:30p [facility] osteoarth of first [place] carpometacarp joint, l hand S60.222A Contusion of left hand, initial encounter Assessments Date Code Description Provider 08/08/2019 M65.331 Trigger finger, right middle finger [...] left hand, subsequent encounter Pierre Maynard MD 03/14/2019 S60.222D Contusion of left hand, subsequent encounter Pierre Maynard MD 02/28/2019 S60.222D Contusion of left hand, subsequent encounter Pierre Maynard MD 02/28/2019 S60.222D Contusion of left hand, subsequent encounter Pierre Maynard MD 02/07/2019 M18.12 Unilateral primary osteoarthritis of first Pierre Maynard MD carpometacarpal j 02/07/2019 S60.222A Contusion of left hand, initial encounter Pierre Maynard MD Plan of Treatment Future Appointment(s):09/19/2019 2:45 pm - Pierre Maynard MD at [facility] at [facility]/30/2020 9:15 am - Pierre Maynard MD at [facility] at [id number]/08/2019 - Pierre Maynard MDM65.331 Trigger finger, right middle fingerFollow up:Follow up: 10-14 days pmipccM63.341 Trigger finger, right ring finger Functional Status Description No Information Available Mental Status Description No Information Available Referrals Description No Information Available
--- OUTSIDE RECORDS SUMMARY | 2019-09-30 07:12 | XMS REPORT | Continuity of Care Document ---
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 DO Not Exceed 6 Per 24 Hours Medications Administered in Office Medication SIG Qnty Indications Ordering Provider Date Depomedrol 40mg/1cc Jessica Villela MD 04/17/2019 (methylprednisolone acetate) Injection Betamethasone Acetate & Marcie Alvarado, [facility] 02/10/2019 Sodium Phosphate 3 MG Of Each Injection Depomedrol 40mg/1cc Flower Chandra MD 01/15/2019 (methylprednisolone acetate) Injection Betamethasone Acetate & Marcie Alvarado, [facility] 12/26/2018 Sodium Phosphate 3 MG Of Each Injection Immunizations Description No Information Available Vital Signs Date Vital Result Comment 09/05/2019 9:53am BP Systolic Sitting Left Arm 101 mmHg BP Diastolic Sitting Left Arm 69 mmHg Heart Rate 83 /min 08/07/2019 11:17am BP Systolic Sitting Left Arm 127 mmHg BP Diastolic Sitting Left Arm 75 mmHg Heart Rate 91 /min Results Description No Information Available Procedures Date Code Description Status 04/17/2019 54726 Asp./Injection major joint Completed 08/06/2008 73485219 Mammogram Completed Medical Devices Description No Information Available Encounters Type Date Location Provider Dx Diagnosis Office Visit 09/05/2019 Orthopaedic Office Flower Chandra, M17.12 Unilateral primary 10:00a osteoarthritis, left knee M89.252 Other disorders of bone development and growth, left femur Office Visit 08/07/2019 [place] Chandra M17.12 Unilateral primary 11:30a Office MD [place] osteoarthritis, left knee M89.252 Other disorders of bone development and growth, left femur Office Visit 05/29/2019 Blake Chandra M17.12 Unilateral primary 9:45a Office MD [place] osteoarthritis, left knee Office Visit 05/01/2019 Physical Medicine Jessica Villela, M17.12 Unilateral primary 9:00a & Infectious osteoarthritis, left Disease knee M25.562 Pain in left knee Z71.6 Tobacco abuse counseling Office Visit 04/03/2019 Physical Catles, M17.12 Unilateral primary 1:00p [facility] & MD Jessica osteoarthritis, left Infectious knee Disease M25.562 Pain in left knee Z71.6 Tobacco abuse counseling Assessments Date Code Description Provider 09/05/2019 M17.12 Unilateral primary osteoarthritis, left knee Flower Chandra MD 09/05/2019 M89.252 Other disorders of bone development and growth, Flower Chandra MD left femur 08/07/2019 M17.12 Unilateral primary osteoarthritis, left knee Flower Chandra MD 08/07/2019 M89.252 Other disorders of bone development and growth, Flower Chandra MD left femur 05/29/2019 M17.12 Unilateral primary osteoarthritis, left knee Flower Chandra MD 05/01/2019 M17.12 Unilateral primary osteoarthritis, left knee Jessica Villela MD 05/01/2019 M25.562 Pain in left knee Jessica Villela MD 05/01/2019 Z71.6 Tobacco abuse counseling Jessica Villela MD 04/17/2019 M17.12 Unilateral primary osteoarthritis, left knee Jessica Villela MD 04/17/2019 M25.562 Pain in left knee Jessica Villela MD 04/17/2019 M17.12 Unilateral primary osteoarthritis, left knee Jessica Villela MD 04/17/2019 M25.562 Pain in left knee Jessica Villela MD 04/03/2019 M17.12 Unilateral primary osteoarthritis, left knee Jessica Villela MD 04/03/2019 M25.562 Pain in left knee Jessica Villela MD 04/03/2019 Z71.6 Tobacco abuse counseling Jessica Villela MD Plan of Treatment 09/05/2019 - Flower Chandra, MDM17.12 Unilateral primary osteoarthritis, left kneeM89.252 Other disorders of bone development and growth, left femurNew Therapy:Physical/Occupational Therapy Functional Status Description No Information Available Mental Status Description No Information Available Referrals Description No Information Available
[2019-09-30 07:23] VITALS: BP 109/64
--- NOTE | 2019-09-30 07:37 | UC ---
Respiratory Complaint HPI - HPI Summary HPI Summary: cough x 2 weeks, cough is productive, with yellow/ green sputum worse with deep breathing, better with rest and fluid, nasal congestion/ post nasal drip , sore throat from the cough wheezing, chest tightness and sob , low grade fever and chills - History of Current Complaint Chief Complaint: UCGeneralIllness Stated Complaint: poss flu Time Seen by Provider: 09/30/19 07:17 Hx Obtained From: Patient Hx Last Menstrual Period: n/a Onset/Duration: Gradual Onset, Lasting Weeks - 2, Still Present Timing: Constant Severity Initially: Moderate Severity Currently: Moderate Pain Intensity: 9 Character: Cough: Productive Aggravating Factors: Exertion, Deep Breaths Alleviating Factors: Nothing Associated Signs And Symptoms: Positive: Dyspnea, Fever, Chills, Wheezing, URI, Nasal Congestion. Negative: Pleuritic Chest Pain, Hemoptysis, Dizziness, Calf Pain, Calf Swelling - Allergies/Home Medications Allergies/Adverse Reactions: Allergies Allergy/AdvReac Type Severity Reaction Status Date / Time codeine Allergy Hives and Verified 09/30/19 07:23 anaphylactic shock latex Allergy Rash Verified 09/30/19 07:23 Penicillins Allergy Difficulty Verified 09/30/19 07:23 Breathing propoxyphene Allergy Anaphylatic Verified 09/30/19 07:23 Shock SEASONAL Allergy Unknown Unknown Uncoded 09/30/19 07:23 Reaction Details aspirin Allergy Difficulty Uncoded 09/30/19 07:23 Breathing Home Medications: Home Medications Levothyroxine TAB* [Synthroid 75 MCG TAB*] 75 mcg PO QAM 03/21/16 [History Confirmed 09/30/19] Omeprazole 20 mg PO BID 08/10/16 [History Confirmed 09/30/19] QUEtiapine TAB* [Seroquel 100 MG *] 50 mg PO BID 12/25/18 [History Confirmed ] Venlafaxine HCl 75 mg PO QAM 12/25/18 [History Confirmed 09/30/19] Albuterol HFA INHALER* [Ventolin HFA Inhaler*] 2 puff INH Q4H PRN #1 mdi [Rx Confirmed 09/30/19] Albuterol/Ipratropium NEB.JUANY* [Duoneb (Albuterol 2.5 MG/Ipratropium 0.5 MG)] 1 inh INH Q6H PRN 02/27/19 [History Confirmed 09/30/19] Acetaminophen TAB* 325 mg PO Q4HR PRN 08/28/19 [History Confirmed 09/30/19] Polyethylene Glycol 3350* [Miralax*] 17 gm PO QAM 08/28/19 [History Confirmed ] Venlafaxine HCl 150 mg PO BEDTIME 08/28/19 [History Confirmed 09/30/19] Azithromycin TAB* [Zithromax TAB (Z-JEMAL) 250 mg #6 tabs] 2 tab PO .TODAY, THEN 1 DAILY #1 jemal 09/30/19 [Rx] predniSONE [Prednisone 20 MG TAB] 20 mg PO BID #10 tablet 09/30/19 [Rx] PMH/Surg Hx/FS Hx/Imm Hx - Additional Past Medical History Additional PMH: cholecystectomy; b/L knee repairs, cardiac ablation, hysterectomy, veins in both leg 05/2019, trigger finger right middle finger 08/2019 Endocrine History: Hypothyroidism Respiratory History: COPD, Asthma - Surgical History Surgical History: Yes Surgery Procedure, Year, and Place: cholecystectomy; b/L knee repairs, cardiac ablation, hysterectomy, veins in both leg 05/2019, trigger finger right middle finger 08/2019 - Family History Known Family History: Positive: Cardiac Disease - Social History Alcohol Use: None Substance Use Type: None Smoking Status (MU): Light Every Day Tobacco Smoker Amount Used/How Often: 1/2ppd Length of Time of Smoking/Using Tobacco: age 38 Have You Smoked in the Last Year: No Household Exposure Type: Cigarettes - Immunization History Most Recent Tetanus Shot: less than 10 yrs ago Review of Systems All Other Systems Reviewed And Are Negative: Yes Constitutional: Positive: Fever, Chills, Fatigue Skin: Positive: Negative Eyes: Positive: Negative ENT: Positive: Sore Throat, Nasal Discharge. Negative: Ear Ache Respiratory: Positive: Shortness Of Breath, Cough Is Patient Immunocompromised?: No Physical Exam Triage Information Reviewed: Yes Appearance: Well-Appearing, No Pain Distress, Well-Nourished Vital Signs: Initial Vital Signs Temp 98.2 F 09/30/19 07:17 Pulse 100 09/30/19 07:17 Resp 16 09/30/19 07:17 BP 109/64 09/30/19 07:17 Pulse Ox 100 09/30/19 07:17 Vital Signs Reviewed: Yes Eyes: Positive: Conjunctiva Clear ENT Exam: Normal ENT: Positive: Normal ENT inspection, Hearing grossly normal, Pharynx normal, Nasal drainage, TMs normal Neck exam: Normal Neck: Positive: Supple, Nontender, No Lymphadenopathy Respiratory: Positive: Chest non-tender, Wheezing. Negative: Respiratory distress, Decreased breath sounds, Crackles Cardiovascular: Positive: No Murmur, Tachycardia Abdominal Exam: Normal Respiratory Course/Dx - Differential Dx/Diagnosis Provider Diagnosis: Bronchitis Discharge ED - Sign-Out/Discharge Documenting (check all that apply): Patient Departure All imaging exams completed and their final reports reviewed: No Studies - Discharge Plan Condition: Stable Disposition: HOME Prescriptions: Azithromycin TAB* [Zithromax TAB (Z-JEMAL) 250 mg #6 tabs] 2 tab PO .TODAY, THEN 1 DAILY #1 jemal predniSONE [Prednisone 20 MG TAB] 20 mg PO BID #10 tablet Patient Education Materials: Acute Bronchitis (ED) Forms: *Work Release Referrals: Piero Licona PA [Primary Care Provider] - If Needed - Billing Disposition and Condition Condition: STABLE Disposition: Home
== END 2019-09-30 07:39 | disposition home or self-care (01) ==
LOC: UCCORT 07:05
DX: J40 Bronchitis, not specified as acute or chronic (principal); E03.9 Hypothyroidism, unspecified; J44.9 Chronic obstructive pulmonary disease, unspecified; F17.210 Nicotine dependence, cigarettes, uncomplicated; Z79.890 Hormone replacement therapy; Z88.5 Allergy status to narcotic agent; Z91.040 Latex allergy status; Z88.0 Allergy status to penicillin; Z91.09 Other allergy status, other than to drugs and biological substances; Z88.6 Allergy status to analgesic agent
CPT/HCPCS: 99212; G0463